=== PATIENT | female | born 1965 | race African-American/Black ===

== ENCOUNTER 2024-08-31 14:07 | Emergency (ER) | payer OTHER, SELFPAY ==
[2024-08-31 14:25] VITALS: BP 148/88; PULSE 85; RESP 16; TEMP 36.9; O2SAT 100
--- NOTE | 2024-08-31 14:41 | ED.SKABFB ---
HPI - Skin/Abscess/Foreign Bdy General Chief complaint: Skin/Abscess/Foreign Body Stated complaint: bed bug bites Time Seen by Provider: 08/31/24 14:52 Source: patient, RN notes reviewed and old records reviewed Mode of arrival: ambulatory Limitations: no limitations History of Present Illness HPI narrative: 59-year-old female presents to the [facility] with concerns for bedbugs. Patient reports that on Saturday stated a hotel where they had bed bugs. Has redness, swelling to the left elbow, right groin area. No fluctuance or drainage noted Patient states last year she had bed bites and was admitted to the hospital for infection. Onset (ago): day(s) (2) Treatments prior to arrival: none Related Data Allergies Allergy/AdvReac Type Severity Reaction Status Date / Time oxycodone Allergy Hives Verified 08/31/24 14:31 tramadol Allergy Rash Verified 08/31/24 14:31 Review of Systems Review of Systems: All systems reviewed & are unremarkable except as noted in HPI and below Constitutional: Constitutional: Reports no additional constitutional complaints Eyes: Eyes: Reports no additional eye complaints ENT: Reports system reviewed and no additional complaints, except as documented Cardiovascular: Cardiovascular: Reports no additional cardiovascular complaints, Denies chest pain and Denies dyspnea Respiratory: Respiratory: Reports no additional respiratory complaints, Denies chest congestion, Denies cough and Denies dyspnea Gastrointestinal: Gastrointestinal: Reports no additional gastrointestinal complaints, Denies abdominal pain, Denies nausea and Denies vomiting Musculoskeletal: Musculoskeletal: Reports no additional musculoskeletal complaints Integumentary/Breasts: Skin/Breast: Reports as per HPI Neurologic: Reports system reviewed and no additional complaints, except as documented Psychiatric: Psychiatric: Reports no additional psychiatric complaints Allergic/Immunologic: Allergic/Immunologic: Reports no additional allergic/immunologic complaints PMFSH Comments At the time of my signature, I reviewed and agree with the nursing past medical, surgical, social, and family history. There is no relevant family history pertinent to the patient complaint. Exam Const: General: cooperative, healthy appearing, comfortable, no acute distress, well developed, alert and well nourished Nutritional Appearance: well nourished Orientation/consciousness: patient oriented x3 Limitations: no limitations HENMT: Head: normal to inspection Ears: hearing grossly normal bilaterally and external ears normal Face/Nose/Sinus: Normal external nose present, normal facial exam and face symmetric Face and sinus: normal facial exam and face symmetric Mouth: Yes Normal oral and palatal mucosa present, Yes lip normal and Yes tongue normal Eyes: General: appearance normal, both eyes and all related structures Alignment and Position: alignment normal Periorbital: periorbital findings normal Neck: Neck: normal visual inspection, full ROM, no lymphadenopathy and no meningeal signs Chest: Chest palpation & inspection: normal inspection of the chest Resp: Effort & Inspection: normal respiratory effort and able to speak in complete sentences Auscultation: clear to auscultation bilaterally, no crackles, no rales, no rhonchi and no wheezes Cardio: Rate: regular rate Rhythm: regular rhythm Skin: General skin exam: normal color and no rashes or lesions noted Lesions: no lesions Trauma: no lacerations or abrasions Wounds: no wounds Other: Multiple red raised warm area to the left outer AC area, right groin area. No fluctuance Neuro: General: patient oriented x3, gait normal, tone normal, moves all extremities and no meningeal signs Cognition (Neuro): normal cognition Speech: normal speech Gait exam (Neuro): Normal gait present Extrem: General: normal to inspection, full ROM, capillary refill normal and normal gait Psych: Appearance: barbara
== END 2024-08-31 15:02 | disposition home or self-care (01) ==
PROVIDERS: Emergency Provider Nurse Practitioner
DX: S50.362A Insect bite (nonvenomous) of left elbow, initial encounter (principal); S30.861A Insect bite (nonvenomous) of abdominal wall, initial encounter; W57.XXXA Bitten or stung by nonvenomous insect and other nonvenomous arthropods, initial encounter; I11.0 Hypertensive heart disease with heart failure; I50.9 Heart failure, unspecified; E78.00 Pure hypercholesterolemia, unspecified; M19.90 Unspecified osteoarthritis, unspecified site; Z90.12 Acquired absence of left breast and nipple
CPT/HCPCS: 99213; G0463

== ENCOUNTER 2024-10-13 12:45 | Inpatient (IN) | payer OTHER, SELFPAY ==
[2024-10-13] VITALS (27 sets, daily range): BP systolic 142–189; BP diastolic 67–101; PULSE 59–87; RESP 12–23; TEMP 36.3–36.8; O2SAT 98–100; BMI 23.8
[2024-10-13 12:52] LABS: Glucose Point of Care 374 mg/dl (65-105)
--- NOTE | 2024-10-13 12:57 | ED_ITS ---
HPI - Recheck/Abnormal Lab/Rx General Chief Complaint: Recheck/Abnormal Lab/Rx <Elke Julio APRN - Last Filed: 10/13/24 12:59> Stated Complaint: blood sugar is 358 <Elke Julio APRN - Last Filed: 10/13/24 12:59> Time Seen by Provider: 10/13/24 12:50 <Elke Julio APRN - Last Filed: 10/13/24 12:59> Focused HPI: Patient is a 59-year-old female who presents to the ER with elevated blood sugars. she reports she has had diabetes for 10 years. Patient has been of her diabetes medications for over 6 months due to insurance changes. She reports she used her 's glucometer this morning and her blood sugar was 371. Patient endorses vomiting, brain fog, dizziness, increased urination, thirsty, headache. Her medical history includes hypertension, hyperlipidemia and diabetes. Patient denies chest pain, shortness a breath, recent signs/symptoms of infection. GENERAL: Well-appearing, well-nourished, and in no acute distress. HEAD: Normocephalic, atraumatic. CHEST: Clear to auscultation. ?No respiratory distress. HEART: Regular rate and rhythm.? NEURO: ?Alert and oriented x3. Patient screened in triage and initial orders placed.? ?Additional care and disposition to be based upon?diagnostic testing and treatment. <Elke Julio APRN - Last Filed: 10/13/24 12:59> Related Data Allergies/Adverse Reactions: Allergies Allergy/AdvReac Type Severity Reaction Status Date / Time oxycodone Allergy Hives Verified 10/13/24 15:47 tramadol Allergy Rash Verified 10/13/24 15:47 <Elke Julio APRN - Last Filed: 10/13/24 12:59> Review of Systems Review of Systems: As reviewed above in HPI <Gordo Butterfield MD - Last Filed: 10/13/24 18:36> Exam Narrative: GENERAL: [Well-appearing, well-nourished, and in no acute distress.] HEAD: [Normocephalic, atraumatic.] EYES: [PERRLA and EOMI.] ENT: Nares clear, no rhinorrhea or epistaxis. Mucous membranes dry. NECK: Supple. CHEST: [Clear to auscultation. No respiratory distress.] HEART: [Regular rate and rhythm]. No murmur heard. [Normal peripheral pulses.] ABDOMEN: [Soft, nondistended], [nontender], [No rigidity or guarding] EXTREMITIES: Normal range of motion. [No edema.] SKIN: Warm, dry, no rash. NEURO: [No focal deficits]. Alert and oriented [x3.] PSYCH: [Normal mood and affect.] <Gordo Butterfield MD - Last Filed: 10/13/24 18:36> Course Vital Signs Vital signs: Vital Signs Temperature 36.3 C L 10/13/24 12:46 Pulse Rate 74 10/13/24 12:46 Respiratory Rate 17 10/13/24 12:46 Blood Pressure 189/99 H 10/13/24 12:46 Pulse Oximetry 100 10/13/24 12:46 Oxygen Delivery Room Air 10/13/24 12:46 Temperature 36.3 C L 10/13/24 12:46 Pulse Rate 68 10/13/24 18:14 Respiratory Rate 19 10/13/24 18:14 Blood Pressure 155/96 H 10/13/24 18:14 Pulse Oximetry 99 10/13/24 18:14 Oxygen Delivery Room Air 10/13/24 12:46 <Elke Julio APRN - Last Filed: 10/13/24 12:59> Vital Signs Temperature 36.3 C L 10/13/24 12:46 Pulse Rate 74 10/13/24 12:46 Respiratory Rate 17 10/13/24 12:46 Blood Pressure 189/99 H 10/13/24 12:46 Pulse Oximetry 100 10/13/24 12:46 Oxygen Delivery Room Air 10/13/24 12:46 Temperature 36.3 C L 10/13/24 12:46 Pulse Rate 68 10/13/24 18:14 Respiratory Rate 19 10/13/24 18:14 Blood Pressure 155/96 H 10/13/24 18:14 Pulse Oximetry 99 10/13/24 18:14 Oxygen Delivery Room Air 10/13/24 12:46 <Gordo Butterfield MD - Last Filed: 10/13/24 18:36> MDM - Recheck/Abnormal Lab/Rx MDM Narrative Medical decision making narrative: 59-year-old female with a past medical history significant for insulin- dependent diabetes, uncontrolled hypertension. She states for last 6 months she has been out of her blood pressure medicine and insulin medications to manage her diabetes secondary to insurance issues. She recently was able to get onto her 's insurance and is trying to get back on to her normal medication regimens. Was not able to see her primary care provider that this started on outpatient basis. Has been having frequent headaches, dizziness, frequent urination and dry mouth sensations. She states her blood sugar at home has been elevated in the 3-400 range. She has also been having blood pressure elevations in the 180s to 220s range. She denies any chest pain, difficulty in breathing, abdominal pain now back pain. She does appear dry in her mucous membranes but not any acute distress, no tachypnea or Kussmaul breathing. Her vital signs are reassuring without any tachycardia, tachypnea, fever or hypoxia. Her initial blood pressure in triage was slightly elevated 189/99 but improved to 155/96 without any intervention once she settled into her room. Presently differential diagnosis does include uncontrolled hypertension, uncontrolled diabetes, diabetic ketoacidosis versus HHS. Other causes such electrolyte derangements or intravascular volume depletion are also possible. Overall she does appear well. Workup was ordered including CBC, CMP, beta hydroxybutyrate, lipase, urinalysis. In triage she was given a fluid bolus and Zofran for nausea. Patient's laboratory studies showed no leukocytosis or anemia. Normal platelet count. Electrolytes show a potassium 4.2, anion gap elevated acidosis of 14 with a bicarb of 19 very mild. Glucose is 374. Normal CMP. Beta hydroxybutyrate elevated at 4.37. Overall on laboratory studies she does have a very minor diabetic ketoacidosis type picture. Given patient's dehydration and mild DKA she was given 2 additional L of fluid and will proceed with subcutaneous insulin therapy for her minor DKA. She was given 7 units of lispro short-acting insulin and a repeat BMP will be ordered after the fluids. No need for potassium replacement this time. No need for insulin drip at this time. Repeat laboratory studies showed the anion gap has since resolved and the bicarb has improved to 20. Blood sugar has improved to 163. I went and re-evaluated the patient frequently she states she feels much improved after the fluid boluses here in the ED and the insulin. I discussed patient's laboratory studies and our plan of care going forward which will be to admit the patient to the hospital for continued evaluation treatment and to place her back on to her normal blood pressure medicines and insulin therapy on inpatient basis. She was agreeable to this plan of care. I discussed the case with the hospitalist being covered presently by the midlevel provider [place]. We went over patient's lab studies, mild DKA that had the gap close with only subcutaneous insulin and no need for insulin drip at this time. She was accepted to the intermediate care unit at this time and admit orders were placed. <Gordo Butterfield MD - Last Filed: 10/13/24 18:36> Medical Records Attestation: I reviewed the patient's medical records. <Gordo Butterfield MD - Last Filed: 10/13/24 18:36> Lab Data Attestation: I reviewed the patient's lab results. <Gordo Butterfield MD - Last Filed: 10/13/24 18:36> Result diagrams: 10/13/24 13:09 10/13/24 17:36 <Elke Julio APRN - Last Filed: 10/13/24 12:59> Labs: Lab Results 10/13/24 10/13/24 10/13/24 Range/Units 12:48 12:48 13:09 WBC 5.7 (4.5-10.0) K/mm3 RBC 3.84 L (4.2-5.4) M/mm3 Hgb 12.5 (12.0-15.0) g/dL Hct 36.2 L (37.0-47.0) % MCV 94.3 (80-100) fl MCH 32.6 (26-34) pg MCHC 34.5 (32-36) g/dl RDW 12.4 (11.5-14.5) % Plt Count 222 (150-375) k/mm3 MPV 10.4 (7.4-10.4) fl Immature Gran % (Auto) 0.2 (0-0.5) % Neut % (Auto) 38.7 L (45.5-73.1) % Lymph % (Auto) 51.2 H (18.3-44.2) % Tillman % (Auto) 8.8 H (2.6-8.5) % Eos % (Auto) 0.7 (0-4.4) % Baso % (Auto) 0.4 (0.2-1.2) % Lymph # (Auto) 2.92 (0.9-3.2) K/mm3 Tillman # (Auto) 0.5 (0.1-0.6) K/mm3 Eos # (Auto) 0.0 (0-0.3) K/mm3 Baso # (Auto) 0.0 (0.0-0.1) K/mm3 Abs Immat Gran (auto) 0.01 (0.00-0.031) K/mm3 Absolute Neuts (auto) 2.2 (1.3-6.7) K/mm3 Absolute Nucleated RBC 0.000 (0.0-0.012) K/mm3 Nucleated RBC % 0.0 (0.0-0.2) % Sodium 136 L (137-145) mmol/L Potassium 4.2 (3.4-5.0) mmol/L Chloride 103 (98-107) mmol/L Carbon Dioxide 19 L (22-30) mmol/L Anion Gap 14 H (4-12) mmol/L BUN 14 (7-17) mg/dL Creatinine 0.60 L (0.7-1.0) mg/dL Estim Creat Clear Calc 92 ml/min Estimated GFR > 60 (59 - ) Glucose 328 H (65-110) mg/dL POC Capillary Glucose 374 H 374 H (65-105) mg/dl Calcium 9.7 (8.4-10.2) mg/dL Total Bilirubin 0.9 (0.2-1.3) mg/dL AST 18 (14-36) U/L ALT 12 (6-35) U/L Alkaline Phosphatase 66 (38-126) U/L Total Protein 8.0 (6.3-8.2) g/dL Albumin 4.6 (3.5-5.1) g/dL Lipase 117 (23-300) U/L Beta-Hydroxybutyrate/Acetoacetate 4.37 H (0.02-0.27) mmol/L Urine Color (Yellow) Urine Appearance (Clear) Urine pH (5.0-9.0) Ur Specific [place] (1.001-1.035) Urine Protein (Negative) mg/dL Urine Glucose (UA) (Negative) mg/dL Urine Ketones (Negative) mg/dL Ur Blood (Man) (Negative) Urine Nitrate (Negative) Urine Bilirubin (Negative) Urine Urobilinogen (<2.0) mg/dL Leukocyte Esterase Rfl (Negative) ELKIN/UL 10/13/24 10/13/24 10/13/24 Range/Units 15:51 17:20 17:36 WBC (4.5-10.0) K/mm3 RBC (4.2-5.4) M/mm3 Hgb (12.0-15.0) g/dL Hct (37.0-47.0) % MCV (80-100) fl MCH (26-34) pg MCHC (32-36) g/dl RDW (11.5-14.5) % Plt Count (150-375) k/mm3 MPV (7.4-10.4) fl Immature Gran % (Auto) (0-0.5) % Neut % (Auto) (45.5-73.1) % Lymph % (Auto) (18.3-44.2) % Tillman % (Auto) (2.6-8.5) % Eos % (Auto) (0-4.4) % Baso % (Auto) (0.2-1.2) % Lymph # (Auto) (0.9-3.2) K/mm3 Tillman # (Auto) (0.1-0.6) K/mm3 Eos # (Auto) (0-0.3) K/mm3 Baso # (Auto) (0.0-0.1) K/mm3 Abs Immat Gran (auto) (0.00-0.031) K/mm3 Absolute Neuts (auto) (1.3-6.7) K/mm3 Absolute Nucleated RBC (0.0-0.012) K/mm3 Nucleated RBC % (0.0-0.2) % Sodium 137 (137-145) mmol/L Potassium 3.9 (3.4-5.0) mmol/L Chloride 108 H (98-107) mmol/L Carbon Dioxide 20 L (22-30) mmol/L Anion Gap 9 (4-12) mmol/L BUN 12 (7-17) mg/dL Creatinine 0.50 L (0.7-1.0) mg/dL Estim Creat Clear Calc 108 ml/min Estimated GFR > 60 (59 - ) Glucose 163 H (65-110) mg/dL POC Capillary Glucose 164 H (65-105) mg/dl Calcium 9.4 (8.4-10.2) mg/dL Total Bilirubin (0.2-1.3) mg/dL AST (14-36) U/L ALT (6-35) U/L Alkaline Phosphatase (38-126) U/L Total Protein (6.3-8.2) g/dL Albumin (3.5-5.1) g/dL Lipase (23-300) U/L Beta-Hydroxybutyrate/Acetoacetate (0.02-0.27) mmol/L Urine Color Yellow (Yellow) Urine Appearance Clear (Clear) Urine pH 5.5 (5.0-9.0) Ur Specific [place] 1.040 H (1.001-1.035) Urine Protein Negative (Negative) mg/dL Urine Glucose (UA) 3+ H (Negative) mg/dL Urine Ketones 2+ H (Negative) mg/dL Ur Blood (Man) Negative (Negative) Urine Nitrate Negative (Negative) Urine Bilirubin Negative (Negative) Urine Urobilinogen 0.2 (<2.0) mg/dL Leukocyte Esterase Rfl Negative (Negative) ELKIN/UL <Elke Julio, [employer] - Last Filed: 10/13/24 12:59> Lab Results 10/13/24 10/13/24 10/13/24 Range/Units 12:48 12:48 13:09 WBC 5.7 (4.5-10.0) K/mm3 RBC 3.84 L (4.2-5.4) M/mm3 Hgb 12.5 (12.0-15.0) g/dL Hct 36.2 L (37.0-47.0) % MCV 94.3 (80-100) fl MCH 32.6 (26-34) pg MCHC 34.5 (32-36) g/dl RDW 12.4 (11.5-14.5) % Plt Count 222 (150-375) k/mm3 MPV 10.4 (7.4-10.4) fl Immature Gran % (Auto) 0.2 (0-0.5) % Neut % (Auto) 38.7 L (45.5-73.1) % Lymph % (Auto) 51.2 H (18.3-44.2) % Tillman % (Auto) 8.8 H (2.6-8.5) % Eos % (Auto) 0.7 (0-4.4) % Baso % (Auto) 0.4 (0.2-1.2) % Lymph # (Auto) 2.92 (0.9-3.2) K/mm3 Tillman # (Auto) 0.5 (0.1-0.6) K/mm3 Eos # (Auto) 0.0 (0-0.3) K/mm3 Baso # (Auto) 0.0 (0.0-0.1) K/mm3 Abs Immat Gran (auto) 0.01 (0.00-0.031) K/mm3 Absolute Neuts (auto) 2.2 (1.3-6.7) K/mm3 Absolute Nucleated RBC 0.000 (0.0-0.012) K/mm3 Nucleated RBC % 0.0 (0.0-0.2) % Sodium 136 L (137-145) mmol/L Potassium 4.2 (3.4-5.0) mmol/L Chloride 103 (98-107) mmol/L Carbon Dioxide 19 L (22-30) mmol/L Anion Gap 14 H (4-12) mmol/L BUN 14 (7-17) mg/dL Creatinine 0.60 L (0.7-1.0) mg/dL Estim Creat Clear Calc 92 ml/min Estimated GFR > 60 (59 - ) Glucose 328 H (65-110) mg/dL POC Capillary Glucose 374 H 374 H (65-105) mg/dl Calcium 9.7 (8.4-10.2) mg/dL Total Bilirubin 0.9 (0.2-1.3) mg/dL AST 18 (14-36) U/L ALT 12 (6-35) U/L Alkaline Phosphatase 66 (38-126) U/L Total Protein 8.0 (6.3-8.2) g/dL Albumin 4.6 (3.5-5.1) g/dL Lipase 117 (23-300) U/L Beta-Hydroxybutyrate/Acetoacetate 4.37 H (0.02-0.27) mmol/L Urine Color (Yellow) Urine Appearance (Clear) Urine pH (5.0-9.0) Ur Specific [place] (1.001-1.035) Urine Protein (Negative) mg/dL Urine Glucose (UA) (Negative) mg/dL Urine Ketones (Negative) mg/dL Ur Blood (Man) (Negative) Urine Nitrate (Negative) Urine Bilirubin (Negative) Urine Urobilinogen (<2.0) mg/dL Leukocyte Esterase Rfl (Negative) ELKIN/UL 10/13/24 10/13/24 10/13/24 Range/Units 15:51 17:20 17:36 WBC (4.5-10.0) K/mm3 RBC (4.2-5.4) M/mm3 Hgb (12.0-15.0) g/dL Hct (37.0-47.0) % MCV (80-100) fl MCH (26-34) pg MCHC (32-36) g/dl RDW (11.5-14.5) % Plt Count (150-375) k/mm3 MPV (7.4-10.4) fl Immature Gran % (Auto) (0-0.5) % Neut % (Auto) (45.5-73.1) % Lymph % (Auto) (18.3-44.2) % Tillman % (Auto) (2.6-8.5) % Eos % (Auto) (0-4.4) % Baso % (Auto) (0.2-1.2) % Lymph # (Auto) (0.9-3.2) K/mm3 Tillman # (Auto) (0.1-0.6) K/mm3 Eos # (Auto) (0-0.3) K/mm3 Baso # (Auto) (0.0-0.1) K/mm3 Abs Immat Gran (auto) (0.00-0.031) K/mm3 Absolute Neuts (auto) (1.3-6.7) K/mm3 Absolute Nucleated RBC (0.0-0.012) K/mm3 Nucleated RBC % (0.0-0.2) % Sodium 137 (137-145) mmol/L Potassium 3.9 (3.4-5.0) mmol/L Chloride 108 H (98-107) mmol/L Carbon Dioxide 20 L (22-30) mmol/L Anion Gap 9 (4-12) mmol/L BUN 12 (7-17) mg/dL Creatinine 0.50 L (0.7-1.0) mg/dL Estim Creat Clear Calc 108 ml/min Estimated GFR > 60 (59 - ) Glucose 163 H (65-110) mg/dL POC Capillary Glucose 164 H (65-105) mg/dl Calcium 9.4 (8.4-10.2) mg/dL Total Bilirubin (0.2-1.3) mg/dL AST (14-36) U/L ALT (6-35) U/L Alkaline Phosphatase (38-126) U/L Total Protein (6.3-8.2) g/dL Albumin (3.5-5.1) g/dL Lipase (23-300) U/L Beta-Hydroxybutyrate/Acetoacetate (0.02-0.27) mmol/L Urine Color Yellow (Yellow) Urine Appearance Clear (Clear) Urine pH 5.5 (5.0-9.0) Ur Specific [place] 1.040 H (1.001-1.035) Urine Protein Negative (Negative) mg/dL Urine Glucose (UA) 3+ H (Negative) mg/dL Urine Ketones 2+ H (Negative) mg/dL Ur Blood (Man) Negative (Negative) Urine Nitrate Negative (Negative) Urine Bilirubin Negative (Negative) Urine Urobilinogen 0.2 (<2.0) mg/dL Leukocyte Esterase Rfl Negative (Negative) ELKIN/UL <Gordo Butterfield MD - Last Filed: 10/13/24 18:36> Critical Care Time Critical Care Time Critical Care Time: Yes <Gordo Butterfield MD - Last Filed: 10/13/24 18:36> Total Critical Care Time: 35 <Gordo Butterfield MD - Last Filed: 10/13/24 18:36> Discharge Plan Discharge Clinical Impression: DKA (diabetic ketoacidosis), Acute dehydration, History of uncontrolled hypertension <Elke Julio APRN - Last Filed: 10/13/24 12:59> Patient Disposition: Still a Patient <Elke Julio APRN - Last Filed: 10/13/24 12:59> Condition: Stable <Elke Julio APRN - Last Filed: 10/13/24 12:59> Prescriptions: No Action cephalexin 500 mg capsule 500 mg PO TID 7 Days Qty: 21 0RF triamcinolone acetonide 0.025 % cream 1 applic topical TID Qty: 30 0RF <Elke Julio APRN - Last Filed: 10/13/24 12:59> Follow-up/Referrals: PHYSICIAN NOT ON STAFF,NONSTAFF [Non-Staff] - <Elke Julio APRN - Last Filed: 10/13/24 12:59> Time of Disposition: 18:36 <Elke Julio APRN - Last Filed: 10/13/24 12:59> 18:36 <Gordo Butterfield MD - Last Filed: 10/13/24 18:36>
[2024-10-13 13:16] LABS: Basophils Percent Auto 0.4 % (0.2-1.2); Eosinophils Percent Auto 0.7 % (0-4.4); Hematocrit 36.2 % (37.0-47.0); Hemoglobin 12.5 g/dL (12.0-15.0); Immature Granulocyte Absolute 0.01 K/mm3 (0.00-0.031); Immature Granulocyte Percent A 0.2 % (0-0.5); Lymphocytes Absolute Auto 2.92 K/mm3 (0.9-3.2); Lymphocytes Percent Auto 51.2 % (18.3-44.2); Mean Corpuscular HGB Conc 34.5 g/dl (32-36); Mean Corpuscular Hemoglobin 32.6 pg (26-34); Mean Corpuscular Volume 94.3 fl (80-100); Mean Platelet Volume 10.4 fl (7.4-10.4); Monocytes Absolute Auto 0.5 K/mm3 (0.1-0.6); Monocytes Percent Auto 8.8 % (2.6-8.5); Neutrophils Absolute Auto 2.2 K/mm3 (1.3-6.7); Neutrophils Percent Auto 38.7 % (45.5-73.1); Platelet Count Result 222 k/mm3 (150-375); Red Blood Count 3.84 M/mm3 (4.2-5.4); Red Cell Distribution Width 12.4 % (11.5-14.5); White Blood Count 5.7 K/mm3 (4.5-10.0)
[2024-10-13 13:29] LABS: Alanine Aminotransferase 12 U/L (6-35); Albumin Level 4.6 g/dL (3.5-5.1); Alkaline Phosphatase 66 U/L (38-126); Anion Gap 14 mmol/L (4-12); Aspartate Amino Transferase 18 U/L (14-36); Bilirubin,Total 0.9 mg/dL (0.2-1.3); Blood Urea Nitrogen 14 mg/dL (7-17); Calcium 9.7 mg/dL (8.4-10.2); Carbon Dioxide 19 mmol/L (22-30); Chloride 103 mmol/L (98-107); Estimated CRCL calculation 92 ml/min; Estimated Glomerular Filt Rate > 60; Glucose 328 mg/dL (65-110); Lipase 117 U/L (23-300); Potassium 4.2 mmol/L (3.4-5.0); Sodium 136 mmol/L (137-145)
[2024-10-13 13:33] LABS: Beta-Hydroxybutyrate/Acetoacetate 4.37 mmol/L (0.02-0.27)
[2024-10-13] MEDS: ONDANSETRON HCL ODT 4 MG TABLET PO (15:55)
[2024-10-13] MEDS: SODIUM CHLORIDE 0.9% IV 1,000 ML 999 ML IV CONT (15:55)
[2024-10-13 15:58] LABS: Add Urine Microscopic? NO; Appearance Urine Clear (Clear); Bilirubin Urine Negative (Negative); Blood Urine Negative (Negative); Color Urine Yellow (Yellow); Glucose Urine UA 3+ mg/dL (Negative); Ketones Urine 2+ mg/dL (Negative); Leukocyte Esterase Ur Negative LEU/UL (Negative); Nitrate Urine Negative (Negative); Protein Urine Negative (Negative); Urobilinogen Urine 0.2 mg/dL (<2.0); pH Urine 5.5 (5.0-9.0)
[2024-10-13] MEDS: LACTATED RINGERS 1,000 ML 999 ML IV CONT ×2 (16:15)
[2024-10-13] MEDS: INSULIN ASPART (*BKC) 100 UNITS/ML 7 UNITS SUB-Q (16:17)
[2024-10-13 17:22] LABS: Glucose Point of Care 164 mg/dl (65-105)
[2024-10-13 18:17] LABS: Anion Gap 9 mmol/L (4-12); Blood Urea Nitrogen 12 mg/dL (7-17); Calcium 9.4 mg/dL (8.4-10.2); Carbon Dioxide 20 mmol/L (22-30); Chloride 108 mmol/L (98-107); Estimated CRCL calculation 108 ml/min; Estimated Glomerular Filt Rate > 60; Glucose 163 mg/dL (65-110); Potassium 3.9 mmol/L (3.4-5.0); Sodium 137 mmol/L (137-145)
--- NOTE | 2024-10-13 20:12 | PC.NURSE ---
Patient states she has been unable to take medications as prescribed r/t lack of insurance since approximately April of 2024. Patient confirmed external medication list of medications that have been prescribed that she is supposed to be taking, but admits that she has been unable to be compliant. Patient states that she now has effective medical insurance and the ability to resume taking medications as prescribed. Admission report provided to ARABELLA Hanna.
--- NOTE | 2024-10-13 21:12 | ADMGEN ---
This patient, Mitzi Simmosn, was admitted to 3 [facility] Surg Room 301-01. Patient/family oriented to hospital policies and general routines including ID bracelet, bed and alarms, visiting hours, pain management, procedures, bathroom and other care routines, personal items, smoking policy, room service/diet, and visiting hours. Information on how to activate the Rapid Response Team has been discussed. Patient/Family are encouraged to report perceived risks to care and to ask questions if they do not understand what they are told or what they should do.
--- NOTE | 2024-10-14 00:15 | PM.IMHP ---
H&P: HPI History of Present Illness Date/Time: 10/14/24 00:15 Chief Complaint: High blood pressure Narrative: 59-year-old female with past medical history of uncontrolled diabetes, uncontrolled hypertension and GERD who presented to the ER with uncontrolled blood pressures. The patient reports a constellation of symptoms that have been ongoing since she has been out of her medications for the last 6 months. She reported that initially she was having some increased urinary frequency and polyuria. This was accompanied by sensation of polyphagia and burning-type epigastric pain. She was trying Tums and [place] without relief in her symptoms. She reports reported that she has also been losing weight since she has been out of her medications and is been down about 40 lb from her baseline weight of 180. She noticed her weight loss in felt like the muscles were wasting away so she started drinking normal in sure. When she thought that this was not helping she then switched to the high protein and sugar. I a.m. protein Ensure than the caused her to develop some constipation. She has noticed some vaginal itching and intermittent burning in her perineum. She reported that she took some [id number] Monistat for 3 days. Her symptoms improved briefly in but then returned. She took an additional dose of Monistat 1 day treatment which helped her symptoms. She reports that her perineal symptoms keep returning. She has had associated intermittent vomiting with her epigastric discomfort. However she became more concerned over this past week when she was having a constant headache and chest tightness. Her children convinced her to check her blood sugar and blood pressure. She reported that her blood sugar was 358 and that her blood pressure was 221/110. On arrival to the ER patient's blood pressure was 189/91 but corrected down to the 140s to 160s range without intervention. Her blood sugar on arrival to the ER was 374. She reports that her glucometer is extremely old and is not been working. She year reported that had she has lost her health insurance in it took them a while to get a new health insurance plan. She now has new health insurance and is interested in restarting her medications. The patient is not the best historian regarding what medications she was previously on. But at psych between her report and review of external medication documentation that she had previously been on Norvasc, Coreg, hydrochlorothiazide, spironolactone, and Jardiance. She also stated that she was on short-acting insulin that she took 3 times a day regularly. She also stated that she was previously on a long-acting insulin but could not recall the name. It sounds like she was on possibly Levemir but this was such a long time ago that there is no documentation of it within the last year. She stated that she had still been using it up until about the middle of the year because she had saved some doses. She has been trying to control her blood sugars with turmeric. She reports that her headache and her chest discomfort improved with IV fluid hydration and insulin in the ER. She reports that she now feels back to her baseline. She does report numbness and tingling sensations to her feet with occasional sharp electrical stabbing pain from her right foot up into her calf and sometimes into her right thigh. She has not followed with an eye doctor in a while for her eye exams. Although patient is alert oriented x4 she is not the best historian regarding her medical history. Patient has a secondary medical record number under her maiden name. Under that documentation and found the patient has history of grade 2 diastolic dysfunction, in, gout, glaucoma and history of alcohol withdrawal seizures. Review of Systems Review of Systems: 12 systems were reviewed with pertinent positives and negatives per HPI. Except as documented in the HPI, all other systems were reviewed and are negative. [facility] Past Medical History Medical History (Updated 10/14/24 @ 02:30 by Eliana Rehman DO) Accessory breast tissue of axilla Excised from the left axilla 2017, now present in the right axilla Alcoholism with alcohol dependence With history of alcohol withdrawal seizure Continuous tobacco abuse Dyslipidemia associated with type 2 diabetes mellitus Essential hypertension GERD (gastroesophageal reflux disease) Glaucoma Gout Grade II diastolic dysfunction Noted on echocardiogram 2021 echo also demonstrated LVH with EF of 65-70% and mild left atrial enlargement Type 2 diabetes mellitus Surgical History Surgical History (Updated 10/14/24 @ 02:14 by Eliana Rehman DO) History of colonoscopy with polypectomy (08/2022) Tubular adenoma History of esophagogastroduodenoscopy (EGD) Normal EGD 04/2022 History of total abdominal hysterectomy and bilateral salpingo-oophorectomy Status post glaucoma surgery Bilateral eyes Status post hammertoe correction Right Family History Family History Sibling Tongue cancer Other Colon cancer Asthma Father High cholesterol Hypertension Diabetes mellitus Congestive heart failure Chronic obstructive pulmonary disease Cerebrovascular accident History of blood clots Asthma Mother Hypertension Other Acute myocardial infarction Social History Social History (Updated 10/14/24 @ 02:17 by Eliana Rehman DO) Social History: She reports that she lives with her 2nd . They have been for 33 years. She has 2 biological daughters and 1 stepdaughter. Her stepson of a drug overdose. She is a homemaker. She smoked 1-2 packs of cigarettes per day in the past but is down to half a pack of cigarettes a day currently. She started smoking around the age of 10. She used to drink a 6 pack tonight and 0.5 pt a night. She reports that in the last couple of months she has cut down to 2 beers and 2 shots a night. She denies illicit substance use. She reports that her grandson lives with them a day also have aCaine patricia and a [place] at home. Code status: Full code Surrogate decision maker: Smoking packs per day: 0.5 Smoking cigarettes per day: 10.0 Years smoked: 40 Smoking pack-years: 20.00 Smoking status: Current every day smoker Drinks per week: 28 Alcohol use details: 6 pack a night and 2.5 pt per week at her heaviest currently 2 beers and 2 shots a night. Substance use: never Do You Feel Safe in your Home?: Yes Lack of Transportation: No Lack of Food: Never True Current Housing: I Have Housing Concerned About Future Housing: No Difficulty Paying Gas/Electric Bills: No Difficulty Paying for Meds: No Currently Unemployed: No Education: High School Diploma/GED Difficulty w/ Childcare or Family Care: No Additional occupation/education comments: Homemaker Spiritual care concerns: No Meds Home Medications and Allergies Home Medications Medication Instructions Recorded Confirmed Type albuterol sulfate 90 mcg/actuation 2 puff inhalation QID PRN 10/13/24 10/13/24 History aerosol inhaler SOB/wheezing amlodipine 10 mg tablet 10 mg PO DAILY 10/13/24 10/13/24 History calcium 600 mg (as 1 tablet PO BID 10/13/24 10/13/24 History carbonate)-vitamin D3 10 mcg (400 unit) tablet carvedilol 12.5 mg tablet 12.5 mg PO BID 10/13/24 10/13/24 History empagliflozin 25 mg tablet 25 mg PO DAILY 10/13/24 10/13/24 History (Jardiance) glimepiride 2 mg tablet 2 mg PO BID 10/13/24 10/13/24 History hydrochlorothiazide 25 mg tablet 25 mg PO DAILY 10/13/24 10/13/24 History insulin aspart U-100 100 unit/mL 6 unit subcut TID 10/13/24 10/13/24 History subcutaneous solution (Novolog U-100 Insulin aspart) mometasone 110 mcg/actuation(30 2 inh inhalation HS 10/13/24 10/13/24 History doses) breath activated powder inhaler (Asmanex Twisthaler) pantoprazole 40 mg tablet,delayed 40 mg PO DAILY 10/13/24 10/13/24 History release rosuvastatin 40 mg tablet 40 mg PO HS 10/13/24 10/13/24 History spironolactone 25 mg tablet 25 mg PO DAILY 10/13/24 10/13/24 History Allergies Allergy/AdvReac Type Severity Reaction Status Date / Time lisinopril Allergy Severe Angioedema Verified 10/14/24 02:32 oxycodone Allergy Hives Verified 10/13/24 15:47 tramadol Allergy Rash Verified 10/13/24 15:47 Vital Signs Vital Signs - 24 hr 10/13/24 12:46 10/13/24 15:47 10/13/24 17:16 Temperature 97.4 F L Pulse Rate 74 75 67 Respiratory Rate 17 22 H 15 Blood Pressure 189/99 H 142/87 H 163/101 H Pulse Oximetry 100 100 100 Oxygen Delivery Room Air 10/13/24 18:14 10/13/24 15:32 10/13/24 15:58 Temperature Pulse Rate 68 69 74 Respiratory Rate 19 15 15 Blood Pressure 155/96 H Pulse Oximetry 99 98 100 Oxygen Delivery 10/13/24 16:00 10/13/24 16:15 10/13/24 16:30 Temperature Pulse Rate 66 65 65 Respiratory Rate 14 21 H 17 Blood Pressure Pulse Oximetry 100 100 100 Oxygen Delivery 10/13/24 16:45 10/13/24 17:00 10/13/24 17:15 Temperature Pulse Rate 62 63 62 Respiratory Rate 23 H 17 17 Blood Pressure Pulse Oximetry 100 100 100 Oxygen Delivery 10/13/24 17:18 10/13/24 17:30 10/13/24 17:32 Temperature Pulse Rate 61 67 59 L Respiratory Rate 12 14 16 Blood Pressure 163/101 H 173/87 H Pulse Oximetry 100 100 100 Oxygen Delivery 10/13/24 17:45 10/13/24 18:00 10/13/24 18:02 Temperature Pulse Rate 63 67 65 Respiratory Rate 16 16 18 Blood Pressure 155/96 H Pulse Oximetry 100 Oxygen Delivery 10/13/24 18:22 10/13/24 18:30 10/13/24 18:45 Temperature Pulse Rate 80 67 72 Respiratory Rate 18 17 14 Blood Pressure Pulse Oximetry 100 100 100 Oxygen Delivery 10/13/24 19:00 10/13/24 19:15 10/13/24 19:30 Temperature Pulse Rate 72 87 84 Respiratory Rate 16 21 H 18 Blood Pressure Pulse Oximetry 100 100 100 Oxygen Delivery 10/13/24 19:47 10/13/24 20:50 10/13/24 21:26 Temperature 98.3 F Pulse Rate 66 68 Respiratory Rate 16 16 Blood Pressure 156/67 H 144/80 H 162/74 H Pulse Oximetry 99 99 Oxygen Delivery Exam Narrative: Weight 73 kg BMI 23.8 Const: Other: No acute distress, well-developed well-nourished, appears stated age HENMT: Other: Mucous membranes are tacky, no oral pharyngeal erythema, 2 cold many years on the right incisor and the right canine, head is normocephalic atraumatic Eyes: Other: Pupils are div, no scleral icterus, no conjunctival pallor Neck: Other: No JVD, no thyromegaly Resp: Other: Clear to auscultation bilaterally, no increased work of breathing Cardio: Other: Regular rate, regular rhythm, 2+ bilateral radial pedal pulses GI: Other: Soft, nontender, nondistended, positive bowel sounds Skin: Other: No jaundice, no pallor Extrem: Other: Fullness and extra tissue noted under the axilla patient had prior ultrasound demonstrating excess breast tissue in this area, no clubbing, cyanosis or edema Psych: Other: Appropriate mood and affect, pleasant and cooperative, fair judgment and insight H&P: Results Labs Labs: Laboratory Tests 10/13/24 13:09 10/13/24 17:36 10/13/24 10/13/24 10/13/24 12:48 12:48 13:09 WBC 5.7 RBC 3.84 L Hgb 12.5 Hct 36.2 L MCV 94.3 MCH 32.6 MCHC 34.5 RDW 12.4 Plt Count 222 MPV 10.4 Immature Gran % (Auto) 0.2 Neut % (Auto) 38.7 L Lymph % (Auto) 51.2 H [place] % (Auto) 8.8 H Eos % (Auto) 0.7 Baso % (Auto) 0.4 Lymph # (Auto) 2.92 [place] # (Auto) 0.5 Eos # (Auto) 0.0 Baso # (Auto) 0.0 Abs Immat Gran (auto) 0.01 Absolute Neuts (auto) 2.2 Absolute Nucleated RBC 0.000 Nucleated RBC % 0.0 Sodium 136 L Potassium 4.2 Chloride 103 Carbon Dioxide 19 L Anion Gap 14 H BUN 14 Creatinine 0.60 L Estim Creat Clear Calc 92 Estimated GFR > 60 Glucose 328 H POC Capillary Glucose 374 H 374 H Calcium 9.7 Total Bilirubin 0.9 AST 18 ALT 12 Alkaline Phosphatase 66 Total Protein 8.0 Albumin 4.6 Lipase 117 Beta-Hydroxybutyrate/Acetoacetate 4.37 H Urine Color Urine Appearance Urine pH Ur Specific [place] Urine Protein Urine Glucose (UA) Urine Ketones Ur Blood (Man) Urine Nitrate Urine Bilirubin Urine Urobilinogen Leukocyte Esterase Rfl 10/13/24 10/13/24 10/13/24 15:51 17:20 17:36 WBC RBC Hgb Hct MCV MCH MCHC RDW Plt Count MPV Immature Gran % (Auto) Neut % (Auto) Lymph % (Auto) [place] % (Auto) Eos % (Auto) Baso % (Auto) Lymph # (Auto) [place] # (Auto) Eos # (Auto) Baso # (Auto) Abs Immat Gran (auto) Absolute Neuts (auto) Absolute Nucleated RBC Nucleated RBC % Sodium 137 Potassium 3.9 Chloride 108 H Carbon Dioxide 20 L Anion Gap 9 BUN 12 Creatinine 0.50 L Estim Creat Clear Calc 108 Estimated GFR > 60 Glucose 163 H POC Capillary Glucose 164 H Calcium 9.4 Total Bilirubin AST ALT Alkaline Phosphatase Total Protein Albumin Lipase Beta-Hydroxybutyrate/Acetoacetate Urine Color Yellow Urine Appearance Clear Urine pH 5.5 Ur Specific [place] 1.040 H Urine Protein Negative Urine Glucose (UA) 3+ H Urine Ketones 2+ H Ur Blood (Man) Negative Urine Nitrate Negative Urine Bilirubin Negative Urine Urobilinogen 0.2 Leukocyte Esterase Rfl Negative Assessment and Plan Assessment and plan (1) DKA (diabetic ketoacidosis): Qualifiers: Diabetes mellitus type: type 2 Diabetes mellitus complication detail: without coma Qualified Code(s): E11.10 - Type 2 diabetes mellitus with ketoacidosis without coma Code(s): E11.10 - Type 2 diabetes mellitus with ketoacidosis without coma Status: Acute (2) Uncontrolled diabetes mellitus: Qualifiers: Diabetes mellitus type: type 2 Glycemic state: with hyperglycemia Qualified Code(s): E11.65 - Type 2 diabetes mellitus with hyperglycemia Status: Acute (3) Type 2 diabetes mellitus with hyperglycemia, without long-term current use of insulin: Code(s): E11.65 - Type 2 diabetes mellitus with hyperglycemia Status: Acute (4) Acute dehydration: Code(s): E86.0 - Dehydration Status: Acute (5) Essential hypertension: Code(s): I10 - Essential (primary) hypertension Status: Acute (6) Diabetic peripheral neuropathy: Code(s): E11.42 - Type 2 diabetes mellitus with diabetic polyneuropathy Status: Acute (7) Alcoholism with alcohol dependence: Qualifiers: Substance use status: uncomplicated Qualified Code(s): F10.20 - Alcohol dependence, uncomplicated Code(s): F10.20 - Alcohol dependence, uncomplicated Status: Acute (8) Nonadherence to medication: Code(s): Z91.148 - Patient's other noncompliance with medication regimen for other reason Status: Acute (9) Continuous tobacco abuse: Code(s): Z72.0 - Tobacco use Status: Acute Plan The patient had borderline DKA with more component the symptoms due to severe component of dehydration. Patient's symptoms have resolved and normalized with IV fluids and 1 dose of IV insulin 7 units given in the ER. Patient's glucoses after arrival to the medical floor had increased back up to 282. Will resume patient's prior home medication of Jardiance and glimepiride she has been started on moderate dose sliding scale insulin with Accu-Cheks a.c. HS and check A1c with a.m. labs. Patient does report symptoms of diabetic neuropathy the importance of glycemic control in reducing progression of disease process was discussed. Patient will need dilated eye exam as outpatient. The patient received 3 L of IV fluid in the ER. Given her history of grade 2 diastolic dysfunction and the national IV fluids shortage have encouraged patient to her free water intake and will hold off IV fluids. Given the neuropathy symptoms will start patient on gabapentin 300 mg nightly. Patient has uncontrolled hypertension due to noncompliance with medications. Initial symptoms of headache and chest pain could have been due to hypertensive urgency but more likely the symptoms were multifactorial due to uncontrolled hypertension and dehydration from borderline DKA. Her chest pain and headache have resolved. Her blood pressures are stable but still in the uncontrolled range. Will resume Norvasc and hydrochlorothiazide the patient had been on previously. The patient was previously on Coreg but given the patient's heart rate is in the borderline low range will hold off on resuming Coreg. Patient is reporting GERD symptoms. Will resume Protonix which she had been prescribed previously. Given her report of chest tightness and her history of diabetes and uncontrolled hypertension will check EKG. Patient does have history of alcoholism but in recent months has cut down significantly to 2 beers and 2 shots a day. If the patient is to remain hospitalized 24 hours we may need to monitor CIWA scores but currently patient is not having any symptoms of withdrawal. Will add thiamine supplementation in check B12 and folic acid levels given that these can be associated with symptoms of neuropathy. Patient is not interested in quitting smoking at this time. Tobacco cessation information has been provided Quality VTE Prophylaxis VTE prophylaxis: pharmacologic ordered (Lovenox 40 mg subQ daily) Hospitalist [facility] Advance Care Plan I have confirmed that the patient's Advanced Care Plan is present, code status is documented, or surrogate decision maker is listed in patient medical record.: Yes Medication Reconciliation I have utilized all available resources to obtain, update and review the patients current medications (includes all prescriptions, OTC, herbals, cannabis, and nutritional supplements).: Yes
[2024-10-14 00:37] LABS: Glucose Point of Care 282 mg/dl (65-105)
--- NOTE | 2024-10-14 02:37 | ECG_ITS ---
Test Date: 2024-10-14 02:54:11 Measurements Intervals [place] Rate: 63 P: 64 MO: 147 QRS: 54 QRSD: 86 T: 263 QT: 433 QTc: 444 Interpretive Statements SINUS RHYTHM POSSIBLE LEFT ATRIAL ENLARGEMENT ST-T WAVE ABNORMALITY IN INFERIOR LEADS- CONSIDER ISCHEMIA ABNORMAL ECG No previous ECG available for comparison Electronically Signed On 10-14-2024 06:25:50 STERILIZER OPERATOR by Gualberto Diez D.O.
[2024-10-14] MEDS: ACETAMINOPHEN 325 MG TABLET 650 MG PO (02:50)
[2024-10-14] MEDS: FLUCONAZOLE 150 MG TABLET PO (02:51)
[2024-10-14] MEDS: GABAPENTIN 300 MG CAPSULE PO ×2 (02:51→20:55)
[2024-10-14 06:00] VITALS: BP 133/77; PULSE 67; RESP 18; TEMP 36.3; O2SAT 100
[2024-10-14 06:22] LABS: Hematocrit 35.9 % (37.0-47.0); Mean Corpuscular HGB Conc 33.4 g/dl (32-36); Mean Corpuscular Hemoglobin 31.9 pg (26-34); Mean Corpuscular Volume 95.5 fl (80-100); Mean Platelet Volume 10.6 fl (7.4-10.4); Platelet Count Result 228 k/mm3 (150-375); Red Blood Count 3.76 M/mm3 (4.2-5.4); Red Cell Distribution Width 12.4 % (11.5-14.5); White Blood Count 5.8 K/mm3 (4.5-10.0)
[2024-10-14 06:48] LABS: Hemoglobin A1C 12.3 % (<5.7)
[2024-10-14 07:32] LABS: Glucose Point of Care 203 mg/dl (65-105)
[2024-10-14 07:46] LABS: Anion Gap 14 mmol/L (4-12); Blood Urea Nitrogen 10 mg/dL (7-17); Calcium 9.3 mg/dL (8.4-10.2); Carbon Dioxide 21 mmol/L (22-30); Chloride 104 mmol/L (98-107); Estimated CRCL calculation 92 ml/min; Estimated Glomerular Filt Rate > 60; Glucose 210 mg/dL (65-110); Potassium 4.2 mmol/L (3.4-5.0); Sodium 139 mmol/L (137-145)
[2024-10-14] MEDS: amLODIPine BESYLATE 10 MG TABLET PO (08:10)
[2024-10-14] MEDS: PANTOPRAZOLE 40 MG TABLET PO (08:10)
[2024-10-14] MEDS: GLIMEPIRIDE 1 MG TABLET PO (08:10)
[2024-10-14] MEDS: CALCIUM/VITAMIN D 500 MG/5 MCG (200 I.U.) TABLET PO ×2 (08:10→15:59)
[2024-10-14] MEDS: ENOXAPARIN 40 MG/0.4 ML SYRINGE SUB-Q (08:10)
[2024-10-14] MEDS: EMPAGLIFLOZIN 25 MG TABLET PO (08:10)
[2024-10-14] MEDS: hydroCHLOROthiazide 25 MG TABLET PO (08:10)
[2024-10-14] MEDS: THIAMINE HCL 100 MG TABLET PO (08:10)
[2024-10-14 08:52] LABS: Folic Acid 7.7 ng/mL (2.76->20)
[2024-10-14] MEDS: INSULIN ASPART (*BKC) 100 UNITS/ML SUB-Q ×4 (09:14→20:55)
--- NOTE | 2024-10-14 10:10 | PM.IMPN ---
Progress Note: A&P Assessment and Plan (1) Essential hypertension: Code(s): I10 - Essential (primary) hypertension Status: Acute Assessment and Plan: Initial blood pressure 148/88 to 189/99 Patient started amlodipine 10 mg daily and hydrochlorothiazide 25 mg daily Continue to monitor and adjust as needed (2) Uncontrolled diabetes mellitus: Qualifiers: Diabetes mellitus type: type 2 Glycemic state: with hyperglycemia Qualified Code(s): E11.65 - Type 2 diabetes mellitus with hyperglycemia Status: Acute Assessment and Plan: Blood sugars ranging 203-269 Hgb A1C 12.3 Accu checks AC/HS Moderate dose SSI ordered hypoglycemic protocol in place Lantus 11 units at bedtime ordered Diabetic diet ordered Jardiance started will hold off on glimepiride for now Likely need Lantus and glimepiride at discharge (3) Hyperglycemia: Code(s): R73.9 - Hyperglycemia, unspecified Status: Acute Assessment and Plan: See above (4) Diabetic peripheral neuropathy: Code(s): E11.42 - Type 2 diabetes mellitus with diabetic polyneuropathy Status: Acute Assessment and Plan: Of note (5) Acute dehydration: Code(s): E86.0 - Dehydration Status: Acute Assessment and Plan: Likely secondary to nausea, vomiting, diarrhea--mild DKA/hyperglycemia Patient was given IV fluids in the ED (6) Alcoholism with alcohol dependence: Qualifiers: Substance use status: uncomplicated Qualified Code(s): F10.20 - Alcohol dependence, uncomplicated Code(s): F10.20 - Alcohol dependence, uncomplicated Status: Acute Assessment and Plan: Patient reports she drinks 2 beers and 2 shots alcohol night Denies history of seizures Has had withdrawal symptoms of anxiety in the past, no hallucinations Last drink was on Saturday night 10/12/24 [facility] protocol ordered (7) Continuous tobacco abuse: Code(s): Z72.0 - Tobacco use Status: Acute Assessment and Plan: Pack day, current every day smoker Nicotine gum and patch ordered Time Spent With Patient Time with patient: Greater than 35 minutes Subjective Date/time seen: 10/14/24 10:10 Interval history: This is a 59 year old female who presented to the hospital with high blood pressure. Work up in the hospital included labs which showed a normal white blood cell count of 5.7, sodium 136, bicarb 19, anion gap 14, creatinine 0.60, blood sugar ranging 328-374, beta hydroxybutyrate 0.37, pH 7.430. Initial blood pressure readings were ranging 142/87 to 189/99. Patient was taking medication at home however lost her insurance and stop taking all of her meds for quite a while. She now has insurance and wanted to be restarted on a regimen. Patient does admit to drinking 2 beers and 2 shots of alcohol every night and has experienced withdrawal in past. She states when she withdrawals from alcohol she feels anxious, denies seizures. She reports nausea, vomiting, abdominal pain, headache, polyuria, polydipsia and dizziness. She denies any fever, chills, chest pain, or shortness of breath. Review of Systems Review of Systems: All systems reviewed & are unremarkable except as noted in HPI and below Constitutional: Constitutional: Reports as per HPI and Reports no additional constitutional complaints Eyes: Eyes: Reports as per HPI and Reports no additional eye complaints ENT: Reports system reviewed and no additional complaints, except as documented and Reports as per HPI Cardiovascular: Cardiovascular: Reports as per HPI and Reports no additional cardiovascular complaints Respiratory: Respiratory: Reports as per HPI and Reports no additional respiratory complaints Gastrointestinal: Gastrointestinal: Reports as per HPI and Reports no additional gastrointestinal complaints Genitourinary: Genitourinary: Reports no additional female genitourinary complaints and Reports as per HPI Musculoskeletal: Musculoskeletal: Reports no additional musculoskeletal complaints and Reports as per HPI Integumentary/Breasts: Skin/Breast: Reports system reviewed and no additional complaints, except as docu and Reports as per HPI Neurologic: Reports system reviewed and no additional complaints, except as documented and Reports as per HPI Psychiatric: Psychiatric: Reports no additional psychiatric complaints and Reports as per HPI Exam Narrative: General: In no acute distress, well nourished Head: atraumatic, no encephalopathy Eyes: PERRLA, sclera clear ENT: moist mucous membranes, nasal passages clear Neck: supple, no JVD, no adenopathy, trachea midline Cardiac: Normal S1 and S2.RRR, No murmur, gallops or friction rubs, peripheral pulses intact. Respiratory: Lungs clear to auscultation, no adventitious lung sounds, currently on room air Gastrointestinal: soft, non-distended, non-tender, normoactive bowel sounds. : voiding without difficulty. Extremities: moves all extremities well, no edema, good ROM, strength 5/5 Skin: clean, dry, intact. No wounds or lesions. Neuro: Alert and oriented x4, cranial nerves intact, no neuro deficits. Psych: normal mood, normal affect, interactive Objective Data Vital Signs Vital Signs: Vital Signs - 24 hr 10/13/24 12:46 10/13/24 15:47 10/13/24 17:16 Temperature 97.4 F L Pulse Rate 74 75 67 Respiratory Rate 17 22 H 15 Blood Pressure 189/99 H 142/87 H 163/101 H Pulse Oximetry 100 100 100 Oxygen Delivery Room Air 10/13/24 18:14 10/13/24 15:32 10/13/24 15:58 Temperature Pulse Rate 68 69 74 Respiratory Rate 19 15 15 Blood Pressure 155/96 H Pulse Oximetry 99 98 100 Oxygen Delivery 10/13/24 16:00 10/13/24 16:15 10/13/24 16:30 Temperature Pulse Rate 66 65 65 Respiratory Rate 14 21 H 17 Blood Pressure Pulse Oximetry 100 100 100 Oxygen Delivery 10/13/24 16:45 10/13/24 17:00 10/13/24 17:15 Temperature Pulse Rate 62 63 62 Respiratory Rate 23 H 17 17 Blood Pressure Pulse Oximetry 100 100 100 Oxygen Delivery 10/13/24 17:18 10/13/24 17:30 10/13/24 17:32 Temperature Pulse Rate 61 67 59 L Respiratory Rate 12 14 16 Blood Pressure 163/101 H 173/87 H Pulse Oximetry 100 100 100 Oxygen Delivery 10/13/24 17:45 10/13/24 18:00 10/13/24 18:02 Temperature Pulse Rate 63 67 65 Respiratory Rate 16 16 18 Blood Pressure 155/96 H Pulse Oximetry 100 Oxygen Delivery 10/13/24 18:22 10/13/24 18:30 10/13/24 18:45 Temperature Pulse Rate 80 67 72 Respiratory Rate 18 17 14 Blood Pressure Pulse Oximetry 100 100 100 Oxygen Delivery 10/13/24 19:00 10/13/24 19:15 10/13/24 19:30 Temperature Pulse Rate 72 87 84 Respiratory Rate 16 21 H 18 Blood Pressure Pulse Oximetry 100 100 100 Oxygen Delivery 10/13/24 19:47 10/13/24 20:50 10/13/24 21:26 Temperature 98.3 F Pulse Rate 66 68 Respiratory Rate 16 16 Blood Pressure 156/67 H 144/80 H 162/74 H Pulse Oximetry 99 99 Oxygen Delivery 10/14/24 06:00 10/14/24 08:15 Temperature 97.4 F L Pulse Rate 67 Respiratory Rate 18 Blood Pressure 133/77 Pulse Oximetry 100 Oxygen Delivery Room Air Intake/Output Intake/Output: Intake & Output 10/11/24 10/12/24 10/13/24 10/14/24 23:59 23:59 23:59 23:59 Intake Total 2500 1100 Balance 2500 1100 Meds/Results Medications: Active Medications Generic Name Dose Route Start Last Admin Trade Name Freq PRN Reason Stop Dose Admin Acetaminophen 650 mg 10/14/24 02:31 10/14/24 02:50 Acetaminophen 325 Mg Tablet PO 650 mg Q4H PRN Administration Mild Pain (1-3) or Fever Amlodipine Besylate 10 mg 10/14/24 09:00 10/14/24 08:10 Amlodipine Besylate 10 Mg Tablet PO 10 mg DAILY MISSY Administration Calcium Carbonate 500 mg 10/14/24 09:00 10/14/24 08:10 Calcium/Vitamin D 500 Mg/5 Mcg (200 I.U.) Tablet PO 500 mg BID MISSY Administration Dextrose 12.5 gm 10/14/24 00:05 Dextrose 50% 25 Gm/50 Ml Syringe IV PUSH PRN PRN Hypoglycemia Protocol Empagliflozin 25 mg 10/14/24 09:00 10/14/24 08:10 Empagliflozin 25 Mg Tablet PO 25 mg DAILY MISSY Administration Enoxaparin Sodium 40 mg 10/14/24 09:00 10/14/24 08:10 Enoxaparin 40 Mg/0.4 Ml Syringe SUB-Q 40 mg DAILY MISSY Administration Gabapentin 300 mg 10/14/24 02:35 10/14/24 02:51 Gabapentin 300 Mg Capsule PO 300 mg HS MISSY Administration Glimepiride 1 mg 10/14/24 08:00 10/14/24 08:10 Glimepiride 1 Mg Tablet PO 1 mg DAILY@0800 MISSY Administration Glucagon 1 mg 10/14/24 00:05 Glucagon For Inj 1 Mg Vial IM PRN PRN Hypoglycemia Protocol Glucose 15 gm 10/14/24 00:05 Glucose Oral Gel 15 Gm Of Glucse In 37.5 Gm Tube PO PRN PRN Hypoglycemia Protocol Hydrochlorothiazide 25 mg 10/14/24 09:00 10/14/24 08:10 Hydrochlorothiazide 25 Mg Tablet PO 25 mg DAILY MISSY Administration Dextrose 1,000 mls @ 100 mls/hr 10/14/24 00:05 Dextrose 5% 1,000 Ml IVPB PRN PRN Hypoglycemia Protocol Insulin Aspart 3 - 6 units 10/14/24 08:00 10/14/24 09:14 Insulin Aspart (*Bkc) 100 Units/Ml SUB-Q 3 units TIDWM MISSY Administration Protocol Insulin Aspart 1 - 3 units 10/14/24 21:00 Insulin Aspart (*Bkc) 100 Units/Ml SUB-Q HS [facility] Protocol Pantoprazole Sodium 40 mg 10/14/24 09:00 10/14/24 08:10 Pantoprazole 40 Mg Tablet PO 40 mg DAILY MISSY Administration Rosuvastatin Calcium 40 mg 10/14/24 21:00 Rosuvastatin 20 Mg Tablet PO HS MISSY Thiamine HCl 100 mg 10/14/24 09:00 10/14/24 08:10 Thiamine Hcl 100 Mg Tablet PO 100 mg QAM MISSY Administration Labs Labs: Laboratory Results - last 24 hr 10/13/24 10/13/24 10/13/24 12:48 12:48 13:09 WBC 5.7 RBC 3.84 L Hgb 12.5 Hct 36.2 L MCV 94.3 MCH 32.6 MCHC 34.5 RDW 12.4 Plt Count 222 MPV 10.4 Immature Gran % (Auto) 0.2 Neut % (Auto) 38.7 L Lymph % (Auto) 51.2 H Sullivan % (Auto) 8.8 H Eos % (Auto) 0.7 Baso % (Auto) 0.4 Lymph # (Auto) 2.92 Sullivan # (Auto) 0.5 Eos # (Auto) 0.0 Baso # (Auto) 0.0 Abs Immat Gran (auto) 0.01 Absolute Neuts (auto) 2.2 Absolute Nucleated RBC 0.000 Nucleated RBC % 0.0 Sodium 136 L Potassium 4.2 Chloride 103 Carbon Dioxide 19 L Anion Gap 14 H BUN 14 Creatinine 0.60 L Estim Creat Clear Calc 92 Estimated GFR > 60 Glucose 328 H POC Capillary Glucose 374 H 374 H Hemoglobin A1c Calcium 9.7 Total Bilirubin 0.9 AST 18 ALT 12 Alkaline Phosphatase 66 Total Protein 8.0 Albumin 4.6 Lipase 117 Vitamin B12 Folate Beta-Hydroxybutyrate/Acetoacetate 4.37 H Urine Color Urine Appearance Urine pH Ur Specific [place] Urine Protein Urine Glucose (UA) Urine Ketones Ur Blood (Man) Urine Nitrate Urine Bilirubin Urine Urobilinogen Leukocyte Esterase Rfl 10/13/24 10/13/24 10/13/24 15:51 17:20 17:36 WBC RBC Hgb Hct MCV MCH MCHC RDW Plt Count MPV Immature Gran % (Auto) Neut % (Auto) Lymph % (Auto) Sullivan % (Auto) Eos % (Auto) Baso % (Auto) Lymph # (Auto) Sullivan # (Auto) Eos # (Auto) Baso # (Auto) Abs Immat Gran (auto) Absolute Neuts (auto) Absolute Nucleated RBC Nucleated RBC % Sodium 137 Potassium 3.9 Chloride 108 H Carbon Dioxide 20 L Anion Gap 9 BUN 12 Creatinine 0.50 L Estim Creat Clear Calc 108 Estimated GFR > 60 Glucose 163 H POC Capillary Glucose 164 H Hemoglobin A1c Calcium 9.4 Total Bilirubin AST ALT Alkaline Phosphatase Total Protein Albumin Lipase Vitamin B12 Folate Beta-Hydroxybutyrate/Acetoacetate Urine Color Yellow Urine Appearance Clear Urine pH 5.5 Ur Specific [place] 1.040 H Urine Protein Negative Urine Glucose (UA) 3+ H Urine Ketones 2+ H Ur Blood (Man) Negative Urine Nitrate Negative Urine Bilirubin Negative Urine Urobilinogen 0.2 Leukocyte Esterase Rfl Negative 10/14/24 10/14/24 10/14/24 00:34 05:57 07:26 WBC 5.8 RBC 3.76 L Hgb 12.0 Hct 35.9 L MCV 95.5 MCH 31.9 MCHC 33.4 RDW 12.4 Plt Count 228 MPV 10.6 H Immature Gran % (Auto) Neut % (Auto) Lymph % (Auto) Sullivan % (Auto) Eos % (Auto) Baso % (Auto) Lymph # (Auto) Sullivan # (Auto) Eos # (Auto) Baso # (Auto) Abs Immat Gran (auto) Absolute Neuts (auto) Absolute Nucleated RBC Nucleated RBC % Sodium 139 Potassium 4.2 Chloride 104 Carbon Dioxide 21 L Anion Gap 14 H BUN 10 Creatinine 0.60 L Estim Creat Clear Calc 92 Estimated GFR > 60 Glucose 210 H POC Capillary Glucose 282 H 203 H Hemoglobin A1c 12.3 H Calcium 9.3 Total Bilirubin AST ALT Alkaline Phosphatase Total Protein Albumin Lipase Vitamin B12 738.0 Folate 7.7 Beta-Hydroxybutyrate/Acetoacetate Urine Color Urine Appearance Urine pH Ur Specific [place] Urine Protein Urine Glucose (UA) Urine Ketones Ur Blood (Man) Urine Nitrate Urine Bilirubin Urine Urobilinogen Leukocyte Esterase Rfl Quality VTE Prophylaxis VTE prophylaxis: pharmacologic ordered (Lovenox 40 mg subQ daily)
[2024-10-14 10:51] LABS: Beta-Hydroxybutyrate/Acetoacetate 4.27 mmol/L (0.02-0.27)
[2024-10-14 11:22] LABS: Fractional Inspired Oxygen 21 %; HCO3 VBG 23.8 mEq/l (24.0-30.0); PCO2 VBG 36.7 mmHg (42.0-48.0)
[2024-10-14 11:23] LABS: Device ROOM AIR; PO2 VBG < 27.0 mmHg (35.0-45.0)
[2024-10-14 11:42] LABS: Glucose Point of Care 269 mg/dl (65-105)
[2024-10-14 13:30] VITALS: BMI 23.8
[2024-10-14 14:00] VITALS: BP 111/54; PULSE 78; RESP 18; TEMP 36; O2SAT 100
[2024-10-14] MEDS: ACETAMINOPHEN 500 MG TABLET 1000 MG PO (15:58)
[2024-10-14 16:53] LABS: Glucose Point of Care 272 mg/dl (65-105)
[2024-10-14 20:00] VITALS: PULSE 72
[2024-10-14 20:06] VITALS: BP 122/71; PULSE 69; RESP 18; TEMP 36.7; O2SAT 99
[2024-10-14 20:07] LABS: Glucose Point of Care 211 mg/dl (65-105)
[2024-10-14] MEDS: ROSUVASTATIN 20 MG TABLET 40 MG PO (20:54)
[2024-10-14] MEDS: INSULIN GLARGINE (*BKC) 100 UNITS/ML 11 UNITS SUB-Q (20:55)
[2024-10-14 23:16] VITALS: PULSE 73
[2024-10-15 03:40] VITALS: PULSE 83
[2024-10-15 05:03] VITALS: BP 138/78; PULSE 65; RESP 16; TEMP 37; O2SAT 100
[2024-10-15 05:24] LABS: Glucose Point of Care 201 mg/dl (65-105)
[2024-10-15] MEDS: ACETAMINOPHEN 500 MG TABLET 1000 MG PO ×2 (05:28→20:50)
[2024-10-15 08:16] LABS: Glucose Point of Care 220 mg/dl (65-105)
[2024-10-15] MEDS: INSULIN ASPART (*BKC) 100 UNITS/ML SUB-Q ×4 (08:45→20:51)
[2024-10-15] MEDS: THIAMINE HCL 100 MG TABLET PO (08:46)
[2024-10-15] MEDS: amLODIPine BESYLATE 10 MG TABLET PO (08:46)
[2024-10-15] MEDS: hydroCHLOROthiazide 25 MG TABLET PO (08:46)
[2024-10-15] MEDS: PANTOPRAZOLE 40 MG TABLET PO (08:46)
[2024-10-15] MEDS: EMPAGLIFLOZIN 25 MG TABLET PO (08:46)
[2024-10-15] MEDS: CALCIUM/VITAMIN D 500 MG/5 MCG (200 I.U.) TABLET PO ×2 (08:46→17:08)
[2024-10-15] MEDS: ENOXAPARIN 40 MG/0.4 ML SYRINGE SUB-Q (08:47)
[2024-10-15 09:00] VITALS: PULSE 83
[2024-10-15 11:39] LABS: Glucose Point of Care 278 mg/dl (65-105)
--- NOTE | 2024-10-15 13:50 | P.PNIM_ITS ---
Progress Note: A&P Assessment and Plan (1) Essential hypertension: Code(s): I10 - Essential (primary) hypertension Status: Acute Assessment and Plan: * Initial blood pressure 111/54-138/78-improved * Patient started amlodipine 10 mg daily and hydrochlorothiazide 25 mg daily * Continue with current dosing (2) Uncontrolled diabetes mellitus: Qualifiers: Diabetes mellitus type: type 2 Glycemic state: with hyperglycemia Qualified Code(s): E11.65 - Type 2 diabetes mellitus with hyperglycemia Status: Acute Assessment and Plan: * Blood sugars ranging 211-278 * Hgb A1C 12.3 * Accu checks AC/HS * Moderate dose SSI ordered * hypoglycemic protocol in place * Lantus 20 units at bedtime ordered * Diabetic diet ordered * Jardiance started will hold off on glimepiride for now * Likely need Lantus and glimepiride at discharge (3) Hyperglycemia: Code(s): R73.9 - Hyperglycemia, unspecified Status: Acute Assessment and Plan: See above (4) Diabetic peripheral neuropathy: Code(s): E11.42 - Type 2 diabetes mellitus with diabetic polyneuropathy Status: Acute Assessment and Plan: Of note (5) Acute dehydration: Code(s): E86.0 - Dehydration Status: Acute Assessment and Plan: * Likely secondary to nausea, vomiting, diarrhea--mild DKA/hyperglycemia * Patient was given IV fluids in the ED (6) Alcoholism with alcohol dependence: Qualifiers: Substance use status: uncomplicated Qualified Code(s): F10.20 - Alcohol dependence, uncomplicated Code(s): F10.20 - Alcohol dependence, uncomplicated Status: Acute Assessment and Plan: * Patient reports she drinks 2 beers and 2 shots alcohol night * Denies history of seizures * Has had withdrawal symptoms of anxiety in the past, no hallucinations * Last drink was on Saturday night 10/12/24 * [facility] protocol ordered (7) Continuous tobacco abuse: Code(s): Z72.0 - Tobacco use Status: Acute Assessment and Plan: * Pack day, current every day smoker * Nicotine gum and patch ordered Subjective Date/time seen: 10/15/24 13:50 Interval history: Interval History: This is a 59 year old female who presented to the hospital with high blood pressure. Work up in the hospital included labs which showed a normal white blood cell count of 5.7, sodium 136, bicarb 19, anion gap 14, creatinine 0.60, blood sugar ranging 328-374, beta hydroxybutyrate 0.37, pH 7.430. Initial blood pressure readings were ranging 142/87 to 189/99. Patient was taking medication at home however lost her insurance and stop taking all of her meds for quite a while. She now has insurance and wanted to be restarted on a regimen. Patient does admit to drinking 2 beers and 2 shots of alcohol every night and has experienced withdrawal in past. She states when she withdrawals from alcohol she feels anxious, denies seizures. She reports nausea, vomiting, abdominal pain, headache, polyuria, polydipsia and dizziness. She denies any fever, chills, chest pain, or shortness of breath. Subjective: Patient still complaining of nausea this a.m. otherwise no new complaints. Labs reviewed. Review of Systems Review of Systems: 12 systems were reviewed with pertinent positives and negatives per HPI. Except as documented in the HPI, all other systems were reviewed and are negative. All systems reviewed & are unremarkable except as noted in HPI and below Constitutional: Constitutional: Reports as per HPI and Reports no additional constitutional complaints Eyes: Eyes: Reports as per HPI and Reports no additional eye complaints ENT: Reports system reviewed and no additional complaints, except as documented and Reports as per HPI Cardiovascular: Cardiovascular: Reports as per HPI and Reports no additional cardiovascular complaints Respiratory: Respiratory: Reports as per HPI and Reports no additional respiratory complaints Gastrointestinal: Gastrointestinal: Reports as per HPI and Reports no additional gastrointestinal complaints Genitourinary: Genitourinary: Reports no additional female genitourinary complaints and Reports as per HPI Musculoskeletal: Musculoskeletal: Reports no additional musculoskeletal compla ints and Reports as per HPI Integumentary/Breasts: Skin/Breast: Reports system reviewed and no additional complaints, except as docu and Reports as per HPI Neurologic: Reports system reviewed and no additional complaints, except as documented and Reports as per HPI Psychiatric: Psychiatric: Reports no additional psychiatric complaints and Reports as per HPI Exam Narrative: General: In no acute distress, well nourished Cardiac: Normal S1 and S2.RRR, No murmur, gallops or friction rubs, peripheral pulses intact. Respiratory: Lungs clear to auscultation, no adventitious lung sounds, currently on room air Gastrointestinal: soft, non-distended, non-tender, normoactive bowel sounds. : voiding without difficulty. Neuro: Alert and oriented x4 Objective Data Vital Signs Vital Signs: Vital Signs - 24 hr 10/14/24 14:00 10/14/24 20:06 10/14/24 20:00 Temperature 96.8 F L 98.1 F Pulse Rate 78 69 Pulse Rate [NIBP] 72 Respiratory Rate 18 18 Blood Pressure 111/54 L 122/71 Pulse Oximetry 100 99 Oxygen Delivery 10/14/24 20:00 10/14/24 23:16 10/15/24 03:40 Temperature Pulse Rate Pulse Rate [NIBP] 73 83 Respiratory Rate Blood Pressure Pulse Oximetry Oxygen Delivery Room Air 10/15/24 05:03 10/15/24 09:00 10/15/24 09:00 Temperature 98.6 F Pulse Rate 65 Pulse Rate [NIBP] 83 Respiratory Rate 16 Blood Pressure 138/78 Pulse Oximetry 100 Oxygen Delivery Room Air Intake/Output Intake/Output: Intake & Output 10/12/24 10/13/24 10/14/24 10/15/24 23:59 23:59 23:59 23:59 Intake Total 2500 3470 1627 Balance 2500 3470 1627 Meds/Results Medications: Active Medications Generic Name Dose Route Start Last Admin Trade Name Freq PRN Reason Stop Dose Admin Acetaminophen 1,000 mg 10/14/24 15:33 10/15/24 05:28 Acetaminophen 500 Mg Tablet PO 1,000 mg Q6H PRN Administration Pain or Fever Amlodipine Besylate 10 mg 10/14/24 09:00 10/15/24 08:46 Amlodipine Besylate 10 Mg Tablet PO 10 mg DAILY MISSY Administration Calcium Carbonate 500 mg 10/14/24 09:00 10/15/24 08:46 Calcium/Vitamin D 500 Mg/5 Mcg (200 I.U.) Tablet PO 500 mg BID MISSY Administration Dextrose 12.5 gm 10/14/24 00:05 Dextrose 50% 25 Gm/50 Ml Syringe IV PUSH PRN PRN Hypoglycemia Protocol Empagliflozin 25 mg 10/14/24 09:00 10/15/24 08:46 Empagliflozin 25 Mg Tablet PO 25 mg DAILY MISSY Administration Enoxaparin Sodium 40 mg 10/14/24 09:00 10/15/24 08:47 Enoxaparin 40 Mg/0.4 Ml Syringe SUB-Q 40 mg DAILY MISSY Administration Gabapentin 300 mg 10/14/24 02:35 10/14/24 20:55 Gabapentin 300 Mg Capsule PO 300 mg HS MISSY Administration Glimepiride 1 mg 10/14/24 08:00 10/14/24 08:10 Glimepiride 1 Mg Tablet PO 1 mg DAILY@0800 MISSY Administration Glucagon 1 mg 10/14/24 00:05 Glucagon For Inj 1 Mg Vial IM PRN PRN Hypoglycemia Protocol Glucose 15 gm 10/14/24 00:05 Glucose Oral Gel 15 Gm Of Glucse In 37.5 Gm Tube PO PRN PRN Hypoglycemia Protocol Hydrochlorothiazide 25 mg 10/14/24 09:00 10/15/24 08:46 Hydrochlorothiazide 25 Mg Tablet PO 25 mg DAILY MISSY Administration Dextrose 1,000 mls @ 100 mls/hr 10/14/24 00:05 Dextrose 5% 1,000 Ml IVPB PRN PRN Hypoglycemia Protocol Insulin Aspart 3 - 6 units 10/14/24 08:00 10/15/24 11:42 Insulin Aspart (*Bkc) 100 Units/Ml SUB-Q 4 units TIDWM MISSY Administration Protocol Insulin Aspart 1 - 3 units 10/14/24 21:00 10/14/24 20:55 Insulin Aspart (*Bkc) 100 Units/Ml SUB-Q 1 units HS MISSY Administration Protocol Insulin Glargine 20 units 10/15/24 21:00 Insulin Glargine (*Bkc) 100 Units/Ml SUB-Q HS MISSY Lorazepam 2 mg 10/14/24 13:19 Lorazepam Inj (*Crx) 2 Mg/Ml Vial IV PUSH Q2H PRN CIWA > 15 Nicotine 1 patch 10/15/24 09:00 10/15/24 08:47 Nicotine (*Pbkc) 14 Mg Patch TRANSDERM Not Given DAILY [facility] Nicotine Polacrilex 4 mg 10/14/24 13:19 Nicotine (*Pbkc) 4 Mg Gum PO PRN PRN Nicotine Cravings Pantoprazole Sodium 40 mg 10/14/24 09:00 10/15/24 08:46 Pantoprazole 40 Mg Tablet PO 40 mg DAILY MISSY Administration Rosuvastatin Calcium 40 mg 10/14/24 21:00 10/14/24 20:54 Rosuvastatin 20 Mg Tablet PO 40 mg HS MISSY Administration Thiamine HCl 100 mg 10/14/24 09:00 10/15/24 08:46 Thiamine Hcl 100 Mg Tablet PO 100 mg QAM MISSY Administration Labs Labs: Laboratory Results - last 24 hr 10/14/24 10/14/24 10/15/24 16:48 19:36 05:19 POC Capillary Glucose 272 H 211 H 201 H 10/15/24 10/15/24 08:11 11:30 POC Capillary Glucose 220 H 278 H Quality VTE Prophylaxis VTE prophylaxis: pharmacologic ordered (Lovenox 40 mg subQ daily)
[2024-10-15 14:00] VITALS: BP 129/75; PULSE 73; RESP 18; TEMP 36.5; O2SAT 100
[2024-10-15 16:29] LABS: Glucose Point of Care 233 mg/dl (65-105)
[2024-10-15] MEDS: ROSUVASTATIN 20 MG TABLET 40 MG PO (20:48)
[2024-10-15] MEDS: GABAPENTIN 300 MG CAPSULE PO (20:48)
[2024-10-15] MEDS: INSULIN GLARGINE (*BKC) 100 UNITS/ML 20 UNITS SUB-Q (20:51)
[2024-10-15 21:19] LABS: Glucose Point of Care 249 mg/dl (65-105)
[2024-10-15 21:51] VITALS: BP 117/68; PULSE 74; RESP 18; TEMP 36.1; O2SAT 100
[2024-10-16 06:00] VITALS: BP 122/72; PULSE 68; RESP 18; TEMP 36.2; O2SAT 100
[2024-10-16] MEDS: hydroCHLOROthiazide 25 MG TABLET PO (08:07)
[2024-10-16] MEDS: EMPAGLIFLOZIN 25 MG TABLET PO (08:07)
[2024-10-16] MEDS: THIAMINE HCL 100 MG TABLET PO (08:07)
[2024-10-16] MEDS: CALCIUM/VITAMIN D 500 MG/5 MCG (200 I.U.) TABLET PO (08:07)
[2024-10-16] MEDS: amLODIPine BESYLATE 10 MG TABLET PO (08:07)
[2024-10-16] MEDS: INSULIN ASPART (*BKC) 100 UNITS/ML SUB-Q ×2 (08:07→11:45)
[2024-10-16 08:08] LABS: Glucose Point of Care 219 mg/dl (65-105)
[2024-10-16] MEDS: ENOXAPARIN 40 MG/0.4 ML SYRINGE SUB-Q (08:08)
[2024-10-16] MEDS: PANTOPRAZOLE 40 MG TABLET PO (08:08)
[2024-10-16] MEDS: NICOTINE (*PBKC) 14 MG PATCH 1 PATCH TRANSDERM (08:08)
[2024-10-16 11:17] LABS: Glucose Point of Care 336 mg/dl (65-105)
--- NOTE | 2024-10-16 13:56 | P.DS_ITS ---
DS: Admitting Diagnosis Discharge Date 10/16/24 Admitting Diagnosis DKA type 2 diabetes mellitus with hyperglycemia acute dehydration essential hypertension diabetic peripheral neuropathy alcoholism with alcohol dependence non adherence to medications continuous tobacco abuse DS: Discharge Diagnosis Discharge Diagnosis (1) Essential hypertension: Code(s): I10 - Essential (primary) hypertension Status: Acute (2) Uncontrolled diabetes mellitus: Qualifiers: Diabetes mellitus type: type 2 Glycemic state: with hyperglycemia Qualified Code(s): E11.65 - Type 2 diabetes mellitus with hyperglycemia Status: Acute (3) Hyperglycemia: Code(s): R73.9 - Hyperglycemia, unspecified Status: Acute (4) Diabetic peripheral neuropathy: Code(s): E11.42 - Type 2 diabetes mellitus with diabetic polyneuropathy Status: Acute (5) Acute dehydration: Code(s): E86.0 - Dehydration Status: Acute (6) Alcoholism with alcohol dependence: Qualifiers: Substance use status: uncomplicated Qualified Code(s): F10.20 - Alcohol dependence, uncomplicated Code(s): F10.20 - Alcohol dependence, uncomplicated Status: Acute (7) Continuous tobacco abuse: Code(s): Z72.0 - Tobacco use Status: Acute DS: Summary Hospital Course Reason for hospitalization: DKA type 2 diabetes mellitus with hyperglycemia acute dehydration essential hypertension diabetic peripheral neuropathy alcoholism with alcohol dependence non adherence to medications continuous tobacco abuse Hospital Course: This is a 59 year old female who presented to the hospital with high blood pressure. Work up in the hospital included labs which showed a normal white blood cell count of 5.7, sodium 136, bicarb 19, anion gap 14, creatinine 0.60, blood sugar ranging 328-374, beta hydroxybutyrate 0.37, pH 7.430. Initial blood pressure readings were ranging 142/87 to 189/99. Patient was taking medication at home however lost her insurance and stop taking all of her meds for quite a while. She now has insurance and wanted to be restarted on a regimen. Patient does admit to drinking 2 beers and 2 shots of alcohol every night and has experienced withdrawal in past. She states when she withdrawals from alcohol she feels anxious, denies seizures. She reports nausea, vomiting, abdominal pain, headache, polyuria, polydipsia and dizziness. She denies any fever, chills, chest pain, or shortness of breath. during the course of her stay patient was given blood pressure medications carvedilol and hydrochlorothiazide which improved her blood pressure readings. She was also started on Lantus and glimepiride for her diabetes. She met with the community nutrition educator as well as with the dietitian this admission. She was given information on a new primary care physician. blood sugars are better controlled and ranging in the mid 200s. Her vital signs are stable, she is afebrile, she is currently on room air. she is stable for discharge at this time. She will need to follow up with Dr. Kearney her primary care physician in 1 week. Diabetic education classes have been set up through the community nutrition educator. She was given a script for glucometer and accessories for the glucometer including lancets and strips upon discharge. final diagnosis: uncontrolled hypertension, uncontrolled type 2 diabetes mellitus with hyperglycemia, diabetic peripheral neuropathy Status at Discharge Cognitive/behavioral status at discharge: alert oriented x3 Functional status at discharge: independent ambulation Overall status at discharge: patient is progressing back to baseline Time Spent with Patient Time attestation: Total time spent providing and/or coordinating discharge services: Time spent: Greater than 30 minutes Exam Narrative: General: In no acute distress, well nourished Cardiac: Normal S1 and S2.RRR, No murmur, gallops or friction rubs, peripheral pulses intact. Respiratory: Lungs clear to auscultation, no adventitious lung sounds, currently on room air Gastrointestinal: soft, non-distended, non-tender, normoactive bowel sounds. : voiding without difficulty. Neuro: Alert and oriented x4 DS: Data Data Completed and Pending Completed studies during hospitalization: None Pending studies at discharge: none Labs on day of discharge: Labs from last 24 hours 10/16/24 10/16/24 10/15/24 11:07 08:01 19:55 POC Capillary Glucose 336 H 219 H 249 H 10/15/24 16:25 POC Capillary Glucose 233 H Procedures/Treatments: none Discharge Plan Discharge Attending physician on discharge: Juan Yun Discharging Clinician: Andie Christiansen Anticipated Discharge Date/Time: 10/16/24 13:41 Patient Disposition: Home, Self-Care Activity: as tolerated Diet: as tolerated Discharge Instructions: * Check blood sugar at least once a day and keep a record of your glucose * Follow up with your primary care doctor in 1 week * All of your prescriptions have been ordered and sent to your pharmacy including a glucometer and supplies. Patient Instructions: Antibiotic Form, Insulin Regular (By injection), Heart Failure (DC), Pain Management (DC), Diabetic Ketoacidosis (GEN), Hypoglycemia in a Person with Diabetes (DC), What is Insulin (DC), How to Give an Insulin Injection (DC), Insulin Pens (DC), Managing Diabetes During Sick Days (DC), Diabetic Hyperglycemia (DC), How to Draw Up Insulin (DC), Hypertension and Diabetes (DC), What to Do if Your Blood Sugar is Low (DC), Diabetes and Nutrition (GEN), Diabetes and Exercise (DC), Type 2 Diabetes Management for Adults (DC) Patient Language: French Stand Alone Forms: General Discharge Information Follow-up/Referrals: Christel,Bailee Kwon [Primary Care Provider] - 1 Week Discharge Medications: New gabapentin [Neurontin] 300 mg Capsule 300 mg PO HS Qty: 30 0RF insulin glargine [Lantus Solostar U-100 Insulin] 100 unit/mL (3 mL) insulin pen 20 unit subcut HS Qty: 1 0RF glimepiride 1 mg tablet 1 mg PO DAILY Qty: 30 0RF (DME) blood-glucose meter Kit See Rx Instructions .Route Qty: 1 0RF Rx Instructions: As directed (DME) diabetic supplies, miscellan. Misc See Rx Instructions .Route Qty: 1 0RF Rx Instructions: As directed (DME) lancet-gluc etooy-fnngrc-rczdb Kit See Rx Instructions .Route Qty: 1 0RF Rx Instructions: As directed fluconazole [Diflucan] 100 mg tablet 100 mg PO DAILY Qty: 1 0RF Continued calcium carbonate-vitamin D3 600 mg-10 mcg (400 unit) tablet 1 tablet PO BID albuterol sulfate 90 mcg/actuation HFA aerosol inhaler 2 puff INHALATION QID PRN (Reason: SOB/wheezing) Qty: 1 0RF Jardiance 25 mg tablet 25 mg PO DAILY Qty: 30 0RF carvedilol 12.5 mg tablet 12.5 mg PO BID Qty: 30 0RF amlodipine 10 mg tablet 10 mg PO DAILY Qty: 30 0RF pantoprazole 40 mg tablet,delayed release (DR/EC) 40 mg PO DAILY Qty: 30 0RF hydrochlorothiazide 25 mg tablet 25 mg PO DAILY Qty: 30 0RF rosuvastatin 40 mg tablet 40 mg PO HS Qty: 30 0RF Discontinued spironolactone 25 mg tablet 25 mg PO DAILY glimepiride 2 mg tablet 2 mg PO BID insulin aspart U-100 [Novolog U-100 Insulin aspart] 100 unit/mL solution 6 unit subcut TID Asmanex Twisthaler 110 mcg/ actuation (30) aerosol powdr breath activated 2 inh INHALATION HS Date of admission: 10/16/24 13:19 Primary Care Provider: Christel,Cher Admitting Provider: Merlyn August Attending physician on admission: Andie Christiansen Condition: Improved Quality VTE Prophylaxis VTE prophylaxis: pharmacologic ordered (Lovenox 40 mg subQ daily)
[2024-10-16 14:00] VITALS: BP 101/68; PULSE 95; RESP 18; TEMP 36.5; O2SAT 100
== END 2024-10-16 15:30 | disposition home or self-care (01) | DRG 639 ==
LOC: ANHED 18:36 → ANH3MEDSUR 20:36 → ANHIMU 10-14 08:07 → ANH3MEDSUR 10-14 08:08
PROVIDERS: Internal Medicine; Registered Nurse; Admitting Provider Internal Medicine; Emergency Provider Student in an Organized Health Care Education/Training Program; PCP Internal Medicine Infectious Disease; Visit Provider Nurse Practitioner Acute Care
DX: E11.10 Type 2 diabetes mellitus with ketoacidosis without coma (principal); E11.65 Type 2 diabetes mellitus with hyperglycemia; Z91.148 Patient's other noncompliance with medication regimen for other reason; E86.0 Dehydration; E11.42 Type 2 diabetes mellitus with diabetic polyneuropathy; E78.5 Hyperlipidemia, unspecified; I10 Essential (primary) hypertension; F10.20 Alcohol dependence, uncomplicated; F17.210 Nicotine dependence, cigarettes, uncomplicated; K21.9 Gastro-esophageal reflux disease without esophagitis
CPT/HCPCS: 36415; 80048; 80053; 81003; 82010; 82607; 82746; 82803; 82948; 83036; 83690; 85025; 85027; 93005; 96360; 96361; 96372; 99285; A9270; G0378; J1650; J1815; J7030; J7120

== ENCOUNTER 2024-12-06 10:10 | Emergency (ER) | payer OTHER, SELFPAY ==
[2024-12-06] VITALS (11 sets, daily range): BP systolic 128–168; BP diastolic 73–95; PULSE 69–90; RESP 13–22; TEMP 36.7; O2SAT 98–100
--- NOTE | ~2024-12-06 | XR_ITS ---
HISTORY: trauma COMPARISON: None TECHNIQUE: 3 views of the left elbow were performed FINDINGS: No acute fracture is identified. No elevation of the anterior or posterior fat pads are identified to suggest a supracondylar fracture . Overlying soft tissues are unremarkable. Bone mineralization is age-appropriate. IMPRESSION: No acute displaced fracture, as detailed above. Reviewed, dictated and finalized at location A. AL WARDEN
--- NOTE | ~2024-12-06 | XR_ITS ---
HISTORY: trauma COMPARISON: None TECHNIQUE: 3 views of the right knee were performed FINDINGS: No acute or subacute fracture. Trace medial tibiofemoral joint space narrowing with proximal tibial sclerosis is identified. No suprapatellar joint effusion is identified. The infrapatellar joint space is clear. IMPRESSION: Trace degenerative disease without acute fracture. Reviewed, dictated and finalized at location A. ETING ANALYST
--- NOTE | ~2024-12-06 | XR_ITS ---
HISTORY: lateral right ankle swelling post fall COMPARISON: None TECHNIQUE: 3 views of the right ankle were performed FINDINGS: No acute fracture or dislocation. Moderate lateral soft tissue swelling. The ankle mortise is preserved. Bone mineralization is age-appropriate. IMPRESSION: Soft tissue swelling, without acute fracture Reviewed, dictated and finalized at location A. ERY MACHINE FEEDER OFFBEARER
--- NOTE | ~2024-12-06 | CT_ITS ---
History: Trauma, unknown loss of consciousness PROCEDURE: CT head without contrast. COMPARISON: None TECHNIQUE: Axial imaging of the head performed from the skull base to the vertex without IV contrast. Sagittal a nd coronal reformations obtained. DLP: 605 mGy-cm FINDINGS: The ventricles are normal in size, shape and position. There is no mass, mass effect or midline shift. There is no abnormal extra-axial fluid collection or intracranial hemorrhage. Visualized paranasal sinuses are clear. The mastoid air cells are well aerated. No acute displaced fractures within the overlying cranium. Impression: No acute intracranial hemorrhage or suspicious mass effect. Reviewed, dictated and finalized at location A. ORIAL WRITER Impression: No acute intracranial hemorrhage or suspicious mass effect.
--- NOTE | ~2024-12-06 | XR_ITS ---
CHEST RADIOGRAPH, PA AND LATERAL CLINICAL HISTORY: left lateral chest wall pain FALL INJ . COMPARISON: None available TECHNIQUE: PA and lateral views of the chest. FINDINGS The cardiomediastinal silhouette is unremarkable. The lungs are clear. Visualized osseous structures and soft tissues are unremarkable. IMPRESSION: No focal infiltrate or effusion. Reviewed, dictated and finalized at location A. NOLOGY LEAD
--- NOTE | ~2024-12-06 | XR_ITS ---
HISTORY: fall, pain COMPARISON: None TECHNIQUE: 2 views of the right hip FINDINGS: No acute fracture or dislocation is identified. Superior lateral sclerosis of the femoral acetabular joint space is present consistent with mild oste oarthritis. Fecal stasis within the colon. Air within the rectum. Findings suggesting bilateral Essure devices within the pelvis Normal mineralization. IMPRESSION: Trace degenerative disease without acute fracture or dislocation Reviewed, dictated and finalized at location A. ND CREW CHIEF
--- NOTE | ~2024-12-06 | XR_ITS ---
HISTORY: limited ROM L shoulder post fall COMPARISON: None TECHNIQUE: 3 views of the left shoulder were performed FINDINGS: No acute fracture. The glenohumeral and acromioclavicular joint space is maintained The visualized portion of the adjacent left lung is clear. The humeral head is well seated within the glenoid fossa. IMPRESSION: No acute fracture or anterior dislocation. Reviewed, dictated and finalized at location A. CING ASSOCIATE
--- NOTE | 2024-12-06 10:16 | ECG_ITS ---
Test Date: 2024-12-06 10:23:31 Measurements Intervals [place] Rate: 81 P: 69 [place]: 150 QRS: 62 QRSD: 77 T: 97 QT: 408 QTc: 474 Interpretive Statements SINUS RHYTHM POSSIBLE LEFT ATRIAL ENLARGEMENT [-0.1mV P WAVE IN V1/V2] NONSPECIFIC T-WAVE ABNORMALITY Compared to ECG 10/14/2024 02:54:11 Possible ischemia no longer present T-wave abnormality still present Electronically Signed On 12-07-2024 18:14:55 BIOLOGICAL AIDE by Shon Ha M.D.
[2024-12-06 11:02] LABS: Troponin I < 0.012 ng/mL (0.000-0.034)
[2024-12-06] MEDS: HYDROmorphone HCL INJ (*CRX) 1 MG/ML SYR 0.5 MG IV PUSH (12:24)
--- NOTE | 2024-12-06 12:24 | ED.GENADULT ---
HPI - General Adult General Chief complaint: Fall Stated complaint: fall yesterday right leg/hip pain Time Seen by Provider: 12/06/24 11:23 History of Present Illness HPI narrative: 59-year-old female presents to the emergency department for evaluation for having a ground level fall last night. Patient reports she was intoxicated and tripped over an extension cord. Patient states she did strike her head and did become days. Patient states she landed on her left side injured her left shoulder and left ribs. Patient also complains of right ankle pain and right hip pain. Patient states this morning she did have an episode of chest pain for which she took her nitro in the chest pain resolved. Patient does have a prior history of CHF secondary to poorly controlled hypertension. Patient reports she has been taking her medications for blood pressure. Related Data Home Medications ?Medication ?Instructions ?Recorded ?Confirmed ?Last Taken ?Type calcium 600 mg (as 1 tablet PO BID 10/13/24 10/13/24 Unknown History carbonate)-vitamin D3 10 mcg (400 unit) tablet Allergies Allergy/AdvReac Type Severity Reaction Status Date / Time lisinopril Allergy Severe Angioedema Verified 12/06/24 10:11 oxycodone Allergy Hives Verified 12/06/24 10:11 tramadol Allergy Rash Verified 12/06/24 10:11 Review of Systems Review of Systems: All systems reviewed & are unremarkable except as noted in HPI and below PMFSH Past Medical History Medical History (Updated 12/06/24 @ 14:22 by Earle Pa MD) Continuous tobacco abuse Grade II diastolic dysfunction Noted on echocardiogram 2021 echo also demonstrated LVH with EF of 65-70% and mild left atrial enlargement Glaucoma Gout Accessory breast tissue of axilla Excised from the left axilla 2017, now present in the right axilla Alcoholism with alcohol dependence With history of alcohol withdrawal seizure Dyslipidemia associated with type 2 diabetes mellitus GERD (gastroesophageal reflux disease) Type 2 diabetes mellitus Essential hypertension Surgical History Surgical History (Updated 10/14/24 @ 02:14 by Eliana Rehman DO) History of esophagogastroduodenoscopy (EGD) Normal EGD 04/2022 Status post glaucoma surgery Bilateral eyes History of colonoscopy with polypectomy (08/2022) Tubular adenoma Status post hammertoe correction Right History of total abdominal hysterectomy and bilateral salpingo-oophorectomy Family History Family History Sibling Tongue cancer Other Colon cancer Asthma Father High cholesterol Hypertension Diabetes mellitus Congestive heart failure Chronic obstructive pulmonary disease Cerebrovascular accident History of blood clots Asthma Mother Hypertension Other Acute myocardial infarction Social History Social History (Updated 10/14/24 @ 02:17 by Eliana Rehman DO) Social History: She reports that she lives with her 2nd . They have been for 33 years. She has 2 biological daughters and 1 stepdaughter. Her stepson of a drug overdose. She is a homemaker. She smoked 1-2 packs of cigarettes per day in the past but is down to half a pack of cigarettes a day currently. She started smoking around the age of 10. She used to drink a 6 pack tonight and 0.5 pt a night. She reports that in the last couple of months she has cut down to 2 beers and 2 shots a night. She denies illicit substance use. She reports that her grandson lives with them a day also have aCaine patricia and a [place] at home. Code status: Full code Surrogate decision maker: Smoking packs per day: 0.5 Smoking cigarettes per day: 10.0 Years smoked: 40 Smoking pack-years: 20.00 Smoking status: Current every day smoker Drinks per week: 28 Alcohol use details: 6 pack a night and 2.5 pt per week at her heaviest currently 2 beers and 2 shots a night. Substance use: never Do You Feel Safe in your Home?: Yes Lack of Transportation: No Lack of Food: Never True Current Housing: I Have Housing Concerned About Future Housing: No Difficulty Paying Gas/Electric Bills: No Difficulty Paying for Meds: No Currently Unemployed: No Education: High School Diploma/GED Difficulty w/ Childcare or Family Care: No Additional occupation/education comments: Homemaker Spiritual care concerns: No Exam Narrative: APPEARANCE: Well appearing, no pain, no distress, well-nourished. HEAD: normocephalic, atraumatic. EYES: PERRLA/EOMI, conjunctivae clear. NOSE: Normal no drainage EARS:TMS clear with good light reflex. THROAT: Pharynx clear, no exudate. NECK: Supple. No adenopathy, no masses. RESPIRATORY: Airway patent, respirations nonlabored. Clear to auscultation bilaterally, no rales, rhonchi, wheezing. CARDIOVASCULAR: Regular rate and rhythm without murmurs rubs or gallops. ABDOMINAL: Soft, nontender, nondistended, normal bowel sounds MUSCULOSKELETAL: Decreased range of motion of the left shoulder with no deformity, left elbow tenderness, left lateral chest wall tenderness to palpation, right ankle lateral edema and tenderness to palpation, right knee pain. NEURO: Alert. Cranial nerves II through XII intact. Good gait. Good coordination SKIN: Warm, dry. Normal Color Course Vital Signs Vital signs: Vital Signs Temperature 98.0 F 12/06/24 10:29 Pulse Rate 80 12/06/24 10:29 Respiratory Rate 14 12/06/24 10:29 Blood Pressure 151/81 H 12/06/24 10:29 Oxygen Delivery Room Air 12/06/24 10:29 Temperature 98.0 F 12/06/24 10:29 Pulse Rate 69 12/06/24 14:16 Respiratory Rate 15 12/06/24 14:16 Blood Pressure 160/92 H 12/06/24 14:16 Pulse Oximetry 100 12/06/24 14:16 Oxygen Delivery Room Air 12/06/24 10:29 Medical Decision Making MDM Narrative Medical decision making narrative: 59-year-old female presents emergency department for evaluation for shoulder pain elbow pain rib pain and ankle pain. Head CT was negative. X-rays were negative for acute fractures or dislocations. Patient's exam is consistent with an ankle sprain. Patient was provided Maycol wrap for comfort crutches for limited weight-bearing. Patient was also complaining of chest pain earlier today. Patient had negative serial troponins and negative serial EKGs. Chest pain was resolved prior to arrival. Patient and family were updated on the results of the workup and plan for treatment and follow-up. All questions concerns were addressed. Differential Diagnosis Differential Diagnosis: Shoulder injury, elbow injury, knee injury, ankle sprain, some hematoma, so workup hemorrhage, ACS Medical Records Medical records reviewed: Yes I reviewed the external patient's medical records. Vital Signs Vital Signs: Vital Signs Temperature 98.0 F 12/06/24 10:29 Pulse Rate 80 12/06/24 10:29 Respiratory Rate 14 12/06/24 10:29 Blood Pressure 151/81 H 12/06/24 10:29 Oxygen Delivery Room Air 12/06/24 10:29 Temperature 98.0 F 12/06/24 10:29 Pulse Rate 69 12/06/24 14:16 Respiratory Rate 15 12/06/24 14:16 Blood Pressure 160/92 H 12/06/24 14:16 Pulse Oximetry 100 12/06/24 14:16 Oxygen Delivery Room Air 12/06/24 10:29 Lab Data Lab results reviewed: Yes I reviewed the patient's lab results. Labs: Lab Results 12/06/24 12/06/24 Range/Units 10:33 13:26 Troponin I < 0.012 < 0.012 (0.000-0.034) ng/mL Imaging Data Radiologist's impression: Impressions Head CT 12/06/24 13:16 Impression: No acute intracranial hemorrhage or suspicious mass effect. Elbow X-Ray 12/06/24 13:44 IMPRESSION: No acute displaced fracture, as detailed above. Chest X-Ray 12/06/24 13:45 IMPRESSION: No focal infiltrate or effusion. Ankle X-Ray 12/06/24 13:46 IMPRESSION: Soft tissue swelling, without acute fracture Shoulder X-Ray 12/06/24 13:46 IMPRESSION: No acute fracture or anterior dislocation. Knee X-Ray 12/06/24 13:47 IMPRESSION: Trace degenerative disease without acute fracture. Hip X-Ray 12/06/24 13:48 IMPRESSION: Trace degenerative disease without acute fracture or dislocation Discharge Plan Discharge Clinical Impression: Head injury, Ankle sprain Patient Disposition: Home, Self-Care Condition: Stable Instructions: Antibiotic Form, Crutch Instructions (ED), Head Injury (ED) Additional Instructions: Maycol wrap for comfort, crutches for limited weight-bearing. Tylenol and ibuprofen for pain control. Have close follow-up with her primary care physician. If you have any worsening symptoms then please call or return to the emergency department. Patient Language: Icelandic Prescriptions: No Action calcium carbonate-vitamin D3 600 mg-10 mcg (400 unit) tablet 1 tablet PO BID gabapentin [Neurontin] 300 mg Capsule 300 mg PO HS Qty: 30 0RF insulin glargine [Lantus Solostar U-100 Insulin] 100 unit/mL (3 mL) insulin pen 20 unit subcut HS Qty: 1 0RF glimepiride 1 mg tablet 1 mg PO DAILY Qty: 30 0RF (DME) blood-glucose meter Kit See Rx Instructions .Route Qty: 1 0RF Rx Instructions: As directed (DME) diabetic supplies, miscellan. Misc See Rx Instructions .Route Qty: 1 0RF Rx Instructions: As directed (DME) lancet-gluc umppo-nxfagg-xgtho Kit See Rx Instructions .Route Qty: 1 0RF Rx Instructions: As directed albuterol sulfate 90 mcg/actuation HFA aerosol inhaler 2 puff INHALATION QID PRN (Reason: SOB/wheezing) Qty: 1 0RF Jardiance 25 mg tablet 25 mg PO DAILY Qty: 30 0RF carvedilol 12.5 mg tablet 12.5 mg PO BID Qty: 30 0RF amlodipine 10 mg tablet 10 mg PO DAILY Qty: 30 0RF pantoprazole 40 mg tablet,delayed release (DR/EC) 40 mg PO DAILY Qty: 30 0RF hydrochlorothiazide 25 mg tablet 25 mg PO DAILY Qty: 30 0RF rosuvastatin 40 mg tablet 40 mg PO HS Qty: 30 0RF fluconazole [Diflucan] 100 mg tablet 100 mg PO DAILY Qty: 1 0RF Follow-up/Referrals: Christel,Bailee Kwon [Primary Care Provider] -
--- NOTE | 2024-12-06 13:20 | ECG_ITS ---
Test Date: 2024-12-06 13:24:50 Measurements Intervals [place] Rate: 77 P: 64 [place]: 151 QRS: 58 QRSD: 83 T: 100 QT: 415 QTc: 472 Interpretive Statements SINUS RHYTHM POSSIBLE LEFT ATRIAL ENLARGEMENT [-0.1mV P WAVE IN V1/V2] NONSPECIFIC T-WAVE ABNORMALITY Compared to ECG 12/06/2024 10:23:31 No significant changes Electronically Signed On 12-07-2024 18:12:53 PEDIATRIC CARDIOLOGIST by Shon Ha M.D.
[2024-12-06 13:51] LABS: Troponin I < 0.012 ng/mL (0.000-0.034)
== END 2024-12-06 14:45 | disposition home or self-care (01) ==
PROVIDERS: Preventive Medicine Aerospace Medicine; Emergency Provider Emergency Medicine; PCP Internal Medicine Infectious Disease
DX: S09.90XA Unspecified injury of head, initial encounter (principal); S93.401A Sprain of unspecified ligament of right ankle, initial encounter; S79.911A Unspecified injury of right hip, initial encounter; S49.92XA Unspecified injury of left shoulder and upper arm, initial encounter; I50.9 Heart failure, unspecified; I11.0 Hypertensive heart disease with heart failure; E11.39 Type 2 diabetes mellitus with other diabetic ophthalmic complication; H42 Glaucoma in diseases classified elsewhere; E11.69 Type 2 diabetes mellitus with other specified complication; E78.5 Hyperlipidemia, unspecified; K21.9 Gastro-esophageal reflux disease without esophagitis; M10.9 Gout, unspecified; F17.210 Nicotine dependence, cigarettes, uncomplicated; Z90.710 Acquired absence of both cervix and uterus; Z90.722 Acquired absence of ovaries, bilateral; Z90.79 Acquired absence of other genital organ(s); R94.31 Abnormal electrocardiogram [ECG] [EKG]; Z79.4 Long term (current) use of insulin; Z79.84 Long term (current) use of oral hypoglycemic drugs; Z79.899 Other long term (current) drug therapy; W18.09XA Striking against other object with subsequent fall, initial encounter
CPT/HCPCS: 36415; 70450; 71046; 73030; 73080; 73502; 73562; 73610; 84484; 93005; 96374; 99284; J1171

== ENCOUNTER 2025-04-15 09:47 | Emergency (ER) | payer OTHER, SELFPAY ==
--- NOTE | ~2025-04-15 | XR_ITS ---
HISTORY: left shoulder pain, injury COMPARISON: 12/06/2024 TECHNIQUE: 3 views of the left shoulder were performed FINDINGS: No acute fracture. The glenohumeral and acromioclavicular joint space is maintained The visualized portion of the adjacent left lung is clear. The humeral head is well seated within the glenoid fossa. IMPRESSION: No acute fracture or anterior dislocation Reviewed, dictated and finalized at location A.
--- NOTE | ~2025-04-15 | XR_ITS ---
HISTORY: pain, injury RT GREAT TO VS DOOR SWELLING EDEMA COMPARISON: None TECHNIQUE: 2 views of the right great toe were performed FINDINGS: No acute or subacute fracture. Postoperative change within the distal margin of the first metatarsal. Joint spaces are preserved and alignment is maintained. Soft tissues are unremarkable without radiopaque foreign body or significant calcification. Age-appropriate mineralization. IMPRESSION: No acute fracture or dislocation. Reviewed, dictated and finalized at location A.
[2025-04-15 09:55] VITALS: BP 189/83; PULSE 92; RESP 16; TEMP 36.4; O2SAT 98
[2025-04-15 10:07] VITALS: BP 172/85; PULSE 94; RESP 16; O2SAT 100
--- NOTE | 2025-04-15 10:47 | ED_ITS ---
HPI - Extremity Injury (Lower) General Chief Complaint: Extremity Injury, Lower Stated Complaint: right great toe injury/left shoulder Time Seen by Provider: 04/15/25 09:55 Source: patient Mode of arrival: ambulatory Limitations: no limitations History of Present Illness HPI Narrative: This is a 60-year-old female that presents to the emergency department for an injury last night. Reports she was walking up the steps and stubbed her right great toe. She then lost her balance and fell backwards onto her left shoulder. She did not hit her head or lose consciousness. Denies any other focal injuries or areas of pain. Related Data Home Medications ?Medication ?Instructions ?Recorded ?Confirmed ?Last Taken ?Type calcium 600 mg (as 1 tablet PO BID 10/13/24 10/13/24 Unknown History carbonate)-vitamin D3 10 mcg (400 unit) tablet Allergies Allergy/AdvReac Type Severity Reaction Status Date / Time lisinopril Allergy Severe Angioedema Verified 04/15/25 09:59 oxycodone Allergy Hives Verified 04/15/25 09:59 tramadol Allergy Rash Verified 04/15/25 09:59 Review of Systems Review of Systems: CONSTITUTIONAL: Denies fever MUSCULOSKELETAL: Reports joint pain, and myalgia. NEUROLOGIC: Denies numbness, or weakness. All systems reviewed & are unremarkable except as noted in HPI and below PMFSH Past Medical History Medical History (Updated 04/16/25 @ 09:19 by Dana Ellis PA-C) Continuous tobacco abuse Grade II diastolic dysfunction Noted on echocardiogram 2021 echo also demonstrated LVH with EF of 65-70% and mild left atrial enlargement Glaucoma Gout Accessory breast tissue of axilla Excised from the left axilla 2017, now present in the right axilla Alcoholism with alcohol dependence With history of alcohol withdrawal seizure Dyslipidemia associated with type 2 diabetes mellitus GERD (gastroesophageal reflux disease) Type 2 diabetes mellitus Essential hypertension Surgical History Surgical History (Updated 10/14/24 @ 02:14 by Eliana Rehman DO) History of esophagogastroduodenoscopy (EGD) Normal EGD 04/2022 Status post glaucoma surgery Bilateral eyes History of colonoscopy with polypectomy (08/2022) Tubular adenoma Status post hammertoe correction Right History of total abdominal hysterectomy and bilateral salpingo-oophorectomy Family History Family History Sibling Tongue cancer Other Colon cancer Asthma Father High cholesterol Hypertension Diabetes mellitus Congestive heart failure Chronic obstructive pulmonary disease Cerebrovascular accident History of blood clots Asthma Mother Hypertension Other Acute myocardial infarction Social History Social History (Updated 10/14/24 @ 02:17 by Eliana Rehman DO) Social History: She reports that she lives with her 2nd . They have been for 33 years. She has 2 biological daughters and 1 stepdaughter. Her stepson of a drug overdose. She is a homemaker. She smoked 1-2 packs of cigarettes per day in the past but is down to half a pack of cigarettes a day currently. She started smoking around the age of 10. She used to drink a 6 pack tonight and 0.5 pt a night. She reports that in the last couple of months she has cut down to 2 beers and 2 shots a night. She denies illicit substance use. She reports that her grandson lives with them a day also have aCaine patricia and a [place] at home. Code status: Full code Surrogate decision maker: Smoking packs per day: 0.5 Smoking cigarettes per day: 10.0 Years smoked: 40 Smoking pack-years: 20.00 Smoking status: Current every day smoker Drinks per week: 28 Alcohol use details: 6 pack a night and 2.5 pt per week at her heaviest currently 2 beers and 2 shots a night. Substance use: never Do You Feel Safe in your Home?: Yes Lack of Transportation: No Lack of Food: Never True Current Housing: I Have Housing Concerned About Future Housing: No Difficulty Paying Gas/Electric Bills: No Difficulty Paying for Meds: No Currently Unemployed: No Education: High School Diploma/GED Difficulty w/ Childcare or Family Care: No Additional occupation/education comments: Homemaker Spiritual care concerns: No Exam Narrative: GENERAL: Well-appearing, well-nourished, and in no acute distress. HEAD: Normocephalic, atraumatic. EYES: EOMI. ENT: Nares clear, no rhinorrhea or epistaxis. Mucous membranes moist. Oropharynx without tonsillar hypertrophy exudate or other lesions. NECK: Supple. No adenopathy or masses. CHEST: Clear to auscultation. No respiratory distress. No wheezes rales or rhonchi HEART: Regular rate and rhythm. No murmur heard. Normal peripheral pulses. EXTREMITIES: Normal range of motion. No edema or obvious deformity. Normal radial and DP pulses SKIN: Warm, dry, no rash. NEURO: No focal deficits. Alert and oriented x3. PSYCH: Normal mood and affect Course Course Emergency Course: Patient updated on her workup and agrees with plan of care Vital Signs Vital signs: Vital Signs Temperature 97.6 F 04/15/25 09:55 Pulse Rate 92 04/15/25 09:55 Respiratory Rate 16 04/15/25 09:55 Blood Pressure 189/83 H 04/15/25 09:55 Pulse Oximetry 98 04/15/25 09:55 Temperature 98.1 F 04/15/25 13:02 Pulse Rate 75 04/15/25 13:02 Respiratory Rate 16 04/15/25 13:02 Blood Pressure 191/88 H 04/15/25 13:02 Pulse Oximetry 100 04/15/25 13:02 MDM - Extremity Injury (Lower) MDM Narrative Medical decision making narrative: Patient presents the emergency department after an injury yesterday to the left shoulder and right great toe. Patient hypertensive, otherwise her vitals are normal. She has known history of hypertension. She has no symptoms with this. Right great toe x-ray without acute osseous abnormalities. Left shoulder x-ray without acute osseous abnormalities. Patient updated on her workup and agrees with plan of care. She is to follow up with primary provider. She was given warnings to return to the ER Differential Diagnosis Differential diagnosis: Likely fracture of toe and other (Contusion, shoulder sprain, proximal humerus fracture) Imaging Data Radiologist's impression: ITS Impressions Toe X-Ray 04/15/25 11:44 IMPRESSION: No acute fracture or dislocation. Shoulder X-Ray 04/15/25 11:46 IMPRESSION: No acute fracture or anterior dislocation Critical Care Time Critical Care Time Critical Care Time: No Discharge Plan Discharge Clinical Impression: Pain of right great toe Sprain of left shoulder Qualifiers: Encounter type: initial encounter Shoulder sprain type: unspecified sprain Qualified Code(s): S43.402A - Unspecified sprain of left shoulder joint, initial encounter Patient Disposition: Home Condition: Stable Instructions: Contusion in Adults (ED), Shoulder Sprain (ED) Additional Instructions: Return to the ER if you experience fever, redness and swelling of your extremity, weakness, numbness, or any other symptoms that are concerning to you Rest, use ice/heat, take anti-inflammatories (Aleve, Ibuprofen, Naproxen, etc) or Tylenol as needed for pain Follow up with your primary care doctor Patient Language: Luxembourgish Prescriptions: No Action calcium carbonate-vitamin D3 600 mg-10 mcg (400 unit) tablet 1 tablet PO BID gabapentin [Neurontin] 300 mg Capsule 300 mg PO HS Qty: 30 0RF insulin glargine [Lantus Solostar U-100 Insulin] 100 unit/mL (3 mL) insulin pen 20 unit subcut HS Qty: 1 0RF glimepiride 1 mg tablet 1 mg PO DAILY Qty: 30 0RF (DME) blood-glucose meter Kit See Rx Instructions .Route Qty: 1 0RF Rx Instructions: As directed (DME) diabetic supplies, miscellan. Misc See Rx Instructions .Route Qty: 1 0RF Rx Instructions: As directed (DME) lancet-gluc vhbxy-efwulo-mjwpv Kit See Rx Instructions .Route Qty: 1 0RF Rx Instructions: As directed albuterol sulfate 90 mcg/actuation HFA aerosol inhaler 2 puff INHALATION QID PRN (Reason: SOB/wheezing) Qty: 1 0RF Jardiance 25 mg tablet 25 mg PO DAILY Qty: 30 0RF carvedilol 12.5 mg tablet 12.5 mg PO BID Qty: 30 0RF amlodipine 10 mg tablet 10 mg PO DAILY Qty: 30 0RF pantoprazole 40 mg tablet,delayed release (DR/EC) 40 mg PO DAILY Qty: 30 0RF hydrochlorothiazide 25 mg tablet 25 mg PO DAILY Qty: 30 0RF rosuvastatin 40 mg tablet 40 mg PO HS Qty: 30 0RF fluconazole [Diflucan] 100 mg tablet 100 mg PO DAILY Qty: 1 0RF Follow-up/Referrals: Christel,Dustin Kwon. [Primary Care Provider] - Ray Banks MD [Physician] -
[2025-04-15] MEDS: IBUPROFEN 600 MG TABLET PO (10:48)
[2025-04-15] MEDS: ACETAMINOPHEN 500 MG TABLET 1000 MG PO (10:48)
[2025-04-15 10:50] VITALS: BP 174/85; PULSE 87; RESP 16; O2SAT 100
[2025-04-15 11:44] VITALS: BP 154/76; PULSE 77; RESP 16; O2SAT 100
[2025-04-15 13:02] VITALS: BP 191/88; PULSE 75; RESP 16; TEMP 36.7; O2SAT 100
== END 2025-04-15 13:04 | disposition home or self-care (01) ==
PROVIDERS: Emergency Provider Physician Assistant; PCP Internal Medicine Infectious Disease
DX: S99.921A Unspecified injury of right foot, initial encounter (principal); S43.402A Unspecified sprain of left shoulder joint, initial encounter; I10 Essential (primary) hypertension; E11.69 Type 2 diabetes mellitus with other specified complication; E78.5 Hyperlipidemia, unspecified; E11.39 Type 2 diabetes mellitus with other diabetic ophthalmic complication; H42 Glaucoma in diseases classified elsewhere; M10.9 Gout, unspecified; K21.9 Gastro-esophageal reflux disease without esophagitis; F10.20 Alcohol dependence, uncomplicated; F17.210 Nicotine dependence, cigarettes, uncomplicated; Z90.710 Acquired absence of both cervix and uterus; Z90.79 Acquired absence of other genital organ(s); Z90.722 Acquired absence of ovaries, bilateral; Z79.4 Long term (current) use of insulin; Z79.84 Long term (current) use of oral hypoglycemic drugs; Z79.899 Other long term (current) drug therapy; W10.9XXA Fall (on) (from) unspecified stairs and steps, initial encounter
CPT/HCPCS: 73030; 73660; 99284; A4565; A9270